=== PATIENT | female | born 1950 | race Caucasian/White ===

== ENCOUNTER 2017-01-19 06:42 | Inpatient (IN) ==
[2017-01-19] MEDS ORDERED: Vancomycin 1,250 MG in D5% in Water 250 ML IVPB ONE ×2 (07:08→19:00)
[2017-01-19] MEDS ORDERED: CeFAZolin Syr 2,000MG/20 ML 2,000 MG/20 ML SYRINGE IVPB ONE (07:08)
[2017-01-19] MEDS ORDERED: Ringers Solution, Lactated 1,000 ML IVC SCH (07:15)
[2017-01-19] MEDS ORDERED: Famotidine 20 MG/2 ML VIAL IVP ONE (07:32)
[2017-01-19] MEDS ORDERED: Acetaminophen IV 1,000 MG/100 ML INFUS..BTL IVPB ONE (07:33)
--- NOTE | 2017-01-19 07:36 | Anesthesia Evaluation PreOp ---
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 Other Medical History: GERD, Other (Obese) Anesthesia History: No Prior Anesthetic Complications : No Alcohol Use: none Drug use: none Medications and Allergies Aspirin 81 mg PO DAILY #90 tab.chew 12/28/15 [Rx] Rivaroxaban [Xarelto] 20 mg PO DAILY #30 tablet 02/10/16 [Rx] Cholecalciferol (D-3) [Vitamin D] 5,000 unit PO DAILY 10/26/16 [History] Multivitamin [One Daily Essential] 1 tab PO DAILY 10/26/16 [History] 3 Allergy/AdvReac Type Severity Reaction Status Date / Time codeine Allergy See Verified 01/19/17 07:02 Comments promethazine [From Phenergan] Allergy See Verified 01/19/17 07:02 Comments - Meds/Allergy Pre-op Review Medications Reviewed: Yes Allergies Reviewed: Yes Anesthesia Results - Labs Laboratory Tests 01/16/17 01/16/17 16:33 16:33 Hgb 12.6 Hct 39.7 Plt Count 297 Sodium 141 Potassium 4.0 BUN 11 Creatinine 0.64 - Imaging EKG: report reviewed (SR) Additional studies: ECHO LVEF 60% Anesthesia Exam O2 Sat Height 1.57 m Height 1.57 m Weight 91.626 kg Weight 91.626 kg O2 Sat by Pulse Oximetry 96 Vital Signs Temp Pulse Resp BP Pulse Ox 98.5 F 96 18 110/74 96 01/19/17 07:00 01/19/17 07:00 01/19/17 07:00 01/19/17 07:00 01/19/17 07:00 Height: 5'2 Weight: 202 lbs NPO (# of Hours): MN Pain Scale: 0 - HEENT Pupil (Motor): Pupils equal, EOMI Mallampati: III Teeth: Edentulous Denture Type: Upper: Complete Oral Opening: Less than or equal to 3 - OPERATOR AND TRUCK DRIVER LOC: Oriented OPERATOR AND TRUCK DRIVER Motor: Normal LUE, Normal RLE, Normal LLE, Normal Face, Deficit RUE ( weakness) OPERATOR AND TRUCK DRIVER Sensory: Normal: RUE, LUE, RLE, LLE, Face - Cardiac Rhythm: Regular Murmur: None JVD: No Carotid Bruit: No - Pulmonary Breath Sounds: bilateral Clear Respiratory Effort: Symmetrical Anesthesia Assess/Plan ASA Score: 3 (PVD Gerd) Modified Gorham Scale for Level of Consciousness: Cooperative, oriented, and tranquil Anesthetic Plan: General Monitoring Plan: Standard Monitors Recovery Plan: PACU (Discussed GA, agrees to proceed)
--- NOTE | 2017-01-19 07:37 | Anesthesia Evaluation PreOp ---
Date of Encounter: 01/19/17 Time of Encounter: 07:32 - Past History Planned Operation: Right brachial angioplasty, possible stent, Cardiac History: Other (PAD, right brachial artery stenosis,) Other Medical History: Bleeding (Lupus anticoagulant positive, chrnic anticoagulation,), GERD Alcohol Use: none Drug use: none Medications and Allergies Aspirin 81 mg PO DAILY #90 tab.chew 12/28/15 [Rx] Rivaroxaban [Xarelto] 20 mg PO DAILY #30 tablet 02/10/16 [Rx] Cholecalciferol (D-3) [Vitamin D] 5,000 unit PO DAILY 10/26/16 [History] Multivitamin [One Daily Essential] 1 tab PO DAILY 10/26/16 [History] 3 Allergy/AdvReac Type Severity Reaction Status Date / Time codeine Allergy See Verified 01/19/17 07:02 Comments promethazine [From Phenergan] Allergy See Verified 01/19/17 07:02 Comments Anesthesia Results - Imaging Additional studies: Angio 12/21/2016: Normal aortic arch and great vessels. 95% Right brachial artery irregular stenosis, possible chronic partial thrombosis. Echo 12/27/2015 LVEF 60-65%. Mild concentric left ventricular hypertrophy. No significant valvular dysfunction. No definite cardiac embolic source detected. Consider PENELOPE for more diagnostic sensitivity if clinically indicated or arrhythmia evaluation.
[2017-01-19] MEDS ORDERED: Heparin 1,000 UNITS/500 mL NS 500 ML ONE (07:52)
[2017-01-19] MEDS ORDERED: Vancomycin 1,000 MG VIAL ONE (07:52)
[2017-01-19] MEDS ORDERED: *HR* Propofol 200 MG/20 ML VIAL IVP ONE (07:56)
[2017-01-19] MEDS ORDERED: *HR* FentaNYL (PF) 100 MCG/2 ML VIAL ONE (07:56)
[2017-01-19] MEDS ORDERED: *HR* Midazolam HCl 2 MG/2 ML VIAL ONE (07:56)
[2017-01-19] MEDS ORDERED: Ondansetron 4 MG/2 ML VIAL ONE (07:57)
[2017-01-19] MEDS ORDERED: *HR* Succinylcholine 200 MG/10 ML VIAL IVP ONE (07:57)
[2017-01-19] MEDS ORDERED: Lidocaine -MPF 2% 2 ML VIAL ONE ×2 (07:57→08:24)
[2017-01-19] MEDS ORDERED: Lidocaine -MPF 4% 5 ML AMPUL ONE (07:57)
[2017-01-19] MEDS ORDERED: Bupivacaine-MPF 0.25% 10 ML VIAL ONE (08:01)
--- NOTE | 2017-01-19 08:11 | History & Physical Report ---
Date of Encounter: 01/19/17 Time of Encounter: 07:55 24 Hour HP Update - Instructions Instructions: If the History and Physical is less than 30 days old and was completed prior to A.M. admission and or procedure and has NOT been updated on calendar day of procedure please complete this update prior to performing procedure. - Update Patient reports changes in Medical Condition: No Changes in examination, assessment, or condition: No Changes in Medication: No Preop tests/diagnostics Reviewed: Yes Surgery Remains Indicated: Yes Consent for Planned Operative Procedure(s) Verified: Yes - Pre-Operative Checklist Preoperative Checklist Indicated: Yes Prophylactic Antibiotic Ordered: Yes (vancomycin due to mrsa risk) Home Medications Include Beta Danuta: No Beta Danuta Taken Today (Day of Surgery): No Beta Danuta Taken Yesterday (Day Prior to Surgery): No
[2017-01-19] MEDS ORDERED: Dexamethasone 4 MG/ML VIAL ONE (08:38)
[2017-01-19] MEDS ORDERED: *HR* Phenylephrine 10 MG/ML VIAL ONE (08:47)
[2017-01-19] MEDS ORDERED: *HR* HYDROmorphone (PF) 1 MG/ML SYRINGE IVP PRN (08:54)
[2017-01-19] MEDS ORDERED: Ondansetron 4 MG/2 ML VIAL IVP PRN ×2 (08:54→12:54)
[2017-01-19] MEDS ORDERED: *HR* Labetalol 20 MG/4 ML SYRINGE IVP PRN ×2 (08:54→12:54)
[2017-01-19] MEDS ORDERED: *HR* Rocuronium Bromide 50 MG/5 ML VIAL ONE (09:00)
[2017-01-19] MEDS ORDERED: *HR* Heparin 5,000 UNIT/ML VIAL ONE ×2 (09:51→10:42)
[2017-01-19] MEDS ORDERED: Neostigmine Methylsulfate 3 MG/3 ML SYRINGE ONE (11:09)
[2017-01-19] MEDS ORDERED: Ketorolac 30 MG/ML VIAL ONE (11:14)
--- NOTE | 2017-01-19 11:46 | Operative Note ---
Date of procedure: 01/19/17 Pre-op diagnosis: Peripheral vascular disease with acute on chronic limb ischemia Post-op diagnosis: same Procedure: Right upper extremity thrombectomy with 4 setswana charo catheter via right brachial artery approach. Right brachial artery endarterectomy with bovine pericardial patch angioplasty. Complications: None Anesthesia: NILAMA Surgeon: John Galvan Estimated blood loss (cc): 50 Specimen: Right upper extremity thrombus Condition: stable Disposition: PACU Procedure in Detail: Indications: The patient is a 66 year old female with a history of acute right upper extremity ischemia with delayed presentation. The patient previously underwent a right upper extremity thrombectomy and her symptoms resolved. The patient recently stopped her anticoagulation for procedures and then developed recurrent right upper extremity symptoms. She was found on angiography to have severe irregular stenoses in the right brachial artery. Revascularization chase s been recommended to alleviate her symptoms and reduce her risk of limb loss. Procedure: The patient was identified in the preoperative area. The risks, benefits and alternatives of the procedure were discussed and all questions were answered. The correct extremity was identified and marked and a barrier was placed on the opposite extremity. The patient was then taken to the operating room. She was placed in the supine position on the operating table. After the induction of general endotracheal anesthesia, she was prepped and draped in the normal sterile fashion. Her transverse scar in the antecubital fossa was opened sharply. Hemostasis was obtinaed with electrocautery. Through a process of blunt, sharp and electocautery dissection, the left bachial, radial and ulnar arteries were dissected circumferentially and surrounded with vessel loops. The patient then received intravenous heparin. After waiting for the heparin to circulate, a longitudinal incision was then made in the right brachial artery. A 4 setswana charo embolectomy catheter was then advanced into the brachial artery. An thrombectomy was then performed. Firm fragmetns of thrombus were retrieved on multiple passes. After several negative passes, the artery was noted to have strong, pulsatile flow. the vessel was flushed with heparinized saline and occluded. The patient was noted to have intimal hyperplasia resulting in significant stenosis along the distal brachial artery in the region of her prior arteriotomy sites. The longitudinal arteriotomy was then extended through the prior transverse arteriotomy sites. An endarterectomy was then performed on the brachial artery. Proximal and distal endpoints were inspected and no elevated flaps were noted. A bovine pericardial patch was cut to fit the arterial defect and sutured in place with running 6-0 Prolene. Prior to completing the patch anastomosis, each vessel was flushed individually, then reoccluded. Heparinized saline was infused into the lumen. The patch was completed and flow was restored. Thrombin and Gelfoam were used to aid in hemostasis. Polyphasic signal was noted distal to the distal end of the patch as well as at the radial and ulnar arteries. A polyphasic signal was also identified in the palmar arch. The wound was irrigated with antibiotic-containing saline. Platelet-rich and platelet-poor plasma were infused into the wound. The wounds were reapproximated with layer of 2-0 Vicryl followed by two layers of 3-0 and Vicryl 3-0 Monocryl in the subcuticular layer. Sterile dressings were applied. The patient was extubated, taken to recovery room in stable condition
--- NOTE | 2017-01-19 12:28 | Anesthesia Evaluation Post Op ---
Date of Encounter: 01/19/17 Time of Encounter: 12:27 - Vital Signs Vital Signs: Selected Entries 01/19/17 12:12 Temperature 97.2 F L Pulse Rate 64 Respiratory Rate 12 Blood Pressure 110/69 O2 Sat by Pulse Oximetry 98 Oxygen Flow Rate (LPM) 2 - Lungs Lungs: Clear Ascult./Percussion - Airway Airway: Non-obstructed - Cardiovascular Regular Rate - Mental Status Mental Status: Alert & Oriented, Answers Appropriately - Pain Pain Scale: 0 Pain Scale used: Numeric (1 - 10) - Nausea Vomiting Nausea Vomiting: Not Present - Hydration Hydration: Ice chips, Samaniego catheter - Discharge PostOp Status: Transfer Patient to floor
[2017-01-19] MEDS ORDERED: Naloxone 0.4 MG/ML INJ IVP PRN (12:54)
[2017-01-19] MEDS ORDERED: Acetaminophen 325 MG TABLET PO PRN (12:54)
[2017-01-19] MEDS ORDERED: *HR* OxyCODONE Immed Rel 5 MG TABLET PO PRN (12:54)
[2017-01-19] MEDS: *HR* Morphine 2 MG/ML SYRINGE IVP PRN ×2 (13:37→23:16)
[2017-01-19] MEDS: *HR* Metoprolol 5 MG/5 ML VIAL IVP SCH ×2 (13:40→17:59)
[2017-01-19] MEDS ORDERED: Aspirin 81 MG TAB.CHEW ONE (15:00)
[2017-01-19] MEDS: Aspirin 81 MG TAB.CHEW PO SCH (15:03)
--- NOTE | 2017-01-19 15:46 | Oncology Inp Consult Note ---
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 - UE arteral physiologic study on Apr 14, 2016 showed that the bilateral upper extremity arterial systems were hemodynamically well maintaned, but repeated study on November 2016 revealed that the right upper extremity was moderate to severely abnormal. She underwent EGD/Colonoscopy and Hernia repair - Xarelto was held due to EGD/Colonoscopy performed due to GI complaints, and then again due to hernia repair surgery on October, what required to hold xarelto for a few days. I explained to Ms. Fine that her recurrent right upper extremity arterial thrombosis could have occurred during the time that anticoagulation was held. -We discussed the options of resuming anticoagulation with xarelto 20 mg daily and asa 81 mg daily ( assuming that her recurrent episode occurred while anticoagulation was being held for procedures/surgery), versus the option of dual anti platelet therapy with asa 81 mg daily and plavix 75 mg daily ( without xarelto). After discussion with the patient and vascular team, it was decided to resume xarelto and asa at the same dose. She will receive the first dose today. She is doing well post op, and will be observed overnight, and possible discharge tomorrow if there are not complications. - Prior work up in 2015 including an extensive hypercoagulable work up that revealed not evidence of an underlying hypercoagulable disorder. Her record has a mention of positive lupus anticoagulant, but she denies any history of APS, stroke, MT ,or other thrombotic episodes. Her prior work up has been negative for APS, these include normal lupus anticoagulant testing, negative values of anti cardiolipin antibodies IgG, IgM, B2 glycoprotein. 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 In view of this, I will repeat anti cardiolipin antibodies, as well as B2 glycoprotein antibodies to rule out APS. - She reports being scheduled to see her cigarette inspector Dr. Ag next week. She was instructed to keep that appointment. Plan: - Resume xarelto 20 mg daily - Resume asa 81 mg daily - For future procedures/surgeries, I'd recommend to bridge with heparin drip in view of the high risk of re thrombosis. - Check Anti cardiolipin antibodies IgG, IgM - Check B2 glycoprotein antibodies IgA, IgG, IgM - Follow up with hematology at the office as scheduled. - Data of Consult Requesting Physician: John Galvan MD Primary Care Provider: Yaa Pantoja CNP - Consult Narrative Reason for consult: Recurrent right uppper extremity arterial thrombosis. History of present illness: Ms. Fine is a 66 year old female with history of right upper extremity thrombosis in December 2015. She was admitted due to recurrent right upper extremity thrombosis while on Xarelto and asa 81 mg daily. Ms. Fine reports that prior to Dec 2015 she had not suffered any thrombotic episode, these include no history of MT, CVA, or VTE. She reports not family history of thrombotic events. In Dec 2015 she underwent thrombectomy, subsequently she was anticoagulated with xarelto and asa 81 mg daily. She had a extensive, but negative hypercoagulable work up; these included normal normal values of lupus anticoagulant, anti cardiolipin ab IgG, IgM, beta 2 glycoprotein IgG, IgM, normal values of protein C, S, ASH, FVL, and negative prothrombin gene mutation. She has been seen regularly by hematology and vascular as outpatient. Vascular physiologic studies in Apr 2016 revealed patent, stable circulation, however repeated studies in November 2016 revealed decrease perfusion in the right upper extremity. She reports being complaint with both xarelto and asa that she has been taking daily, except when stopped during the time of her hernia repair and EGD/Colonscopy. She reports pain in her right upper extremity for several weeks, today she underwent surgical intervention/thrombectomy. In the post op, she reports feeling well, denies pain. Past Med Surg Social Fam HX - Past Medical History Medical history: DVT, other Psychiatric history: no psych history - Past Surgical History Surgical History: hysterectomy, other - Social History Smoking Status: Never smoker Smokeless Tobacco Status: No Alcohol use: none Drug use: none - Family History Mother Hx Family Cardiac Disorders: No Father Hx Family Cardiac Disorders: No Medications and Allergies Aspirin 81 mg PO DAILY #90 tab.chew 12/28/15 [Rx] Rivaroxaban [Xarelto] 20 mg PO DAILY #30 tablet 02/10/16 [Rx] Cholecalciferol (D-3) [Vitamin D] 5,000 unit PO DAILY 10/26/16 [History] Multivitamin [One Daily Essential] 1 tab PO DAILY 10/26/16 [History] 3 Allergy/AdvReac Type Severity Reaction Status Date / Time codeine Allergy See Verified 01/19/17 07:02 Comments promethazine [From Phenergan] Allergy See Verified 01/19/17 07:02 Comments Constitutional: Absent: anorexia, chills Cardiovascular: Absent: chest pain, dyspnea on exertion Gastrointestinal: Absent: abdominal pain, bloating Musculoskeletal: Absent: arthralgias, joint swelling Neurological: Absent: abnormal hearing, behavioral changes, headache(s) Psychiatric: Absent: confusion, memory loss Hematologic/Lymphatic: Present: as per HPI. Absent: easy bleeding Oncology - Exam - Constitutional Vitals: Temp Pulse Resp BP Pulse Ox 98.1 F 91 16 107/97 100 01/19/17 12:29 01/19/17 15:00 01/19/17 12:29 01/19/17 15:00 01/19/17 12:29 - Head Head exam: Present: normal inspection, normocephalic - Eye Eye exam: Present: EOMI, normal appearance - Neck Neck exam: Absent: meningismus, tenderness - Respiratory Respiratory exam: Present: CTAB. Absent: prolonged expiratory phase - Cardiovascular Cardiovascular exam: Present: RRR, +S1 - GI/Abdominal GI/Abdominal exam: Present: normal bowel sounds. Absent: organomegaly - Extremities Exam Extremities exam: Present: normal capillary refill (normal capillary refill in both upper extremities. surgical incision. ), normal inspection. Absent: tenderness - Back Exam Back exam: Present: normal inspection. Absent: CVA tenderness (L) - Neurological Exam Neurological exam: Present: alert, oriented X3 Consult Discharge Plan - Plan Referrals: Yaa Pantoja CNP [Primary Care Provider] - 01/25/17 11:00 am John Galvan MD [Partnered Physician] - 02/14/17 2:30 pm
[2017-01-19] MEDS: CeFAZolin Premix DUPLEX 2,000 MG/50 ML BAG IVPB SCH ×2 (16:06→23:15)
[2017-01-19] MEDS ORDERED: *HR* Rivaroxaban 10 MG TABLET PO SCH (17:00)
[2017-01-19] MEDS ORDERED: *HR* Heparin 5,000 UNIT/ML VIAL SQ SCH (18:00)
[2017-01-19] MEDS: *HR* HYDROcodone/Acet 5/325 mg TABLET PO PRN (20:36)
[2017-01-20] MEDS: *HR* HYDROcodone/Acet 5/325 mg TABLET PO PRN (04:05)
[2017-01-20] MEDS: *HR* Metoprolol 5 MG/5 ML VIAL IVP SCH ×2 (05:14)
[2017-01-20 05:26] LABS: Basophils % 0.1 %; Hematocrit 34.6 % (35.3-44.9); Hemoglobin 11.1 g/dL (11.5-15.4); Immature Granulocytes % 0.5 % (0-4); Lymphocytes # 1.7 K/mcL (0.6-4.6); Lymphocytes % 9.9 %; Mean Corpuscular HGB Conc 32.1 g/dL (31.6-35.5); Mean Corpuscular Hemoglobin 27.8 pg (28.0-33.3); Mean Corpuscular Volume 86.7 fL (83.0-100.0); Mean Platelet Volume 9.5 fL (9.4-12.4); Monocytes # 1.2 K/mcL (0.0-1.3); Monocytes % 7.1 %; Neutrophils # 13.9 K/mcL (1.6-8.9); Platelet Count 288 K/mcL (140-400); Red Blood Count 3.99 M/mcL (3.82-4.97); Red Cell Distribution Width 12.6 % (11.5-14.5); Segmented Neutrophils % 82.4 %
[2017-01-20 05:51] LABS: BUN/Creatinine Ratio 16 (6-26); Blood Urea Nitrogen 10 mg/dL (7-20); Calcium 8.4 mg/dL (8.6-10.8); Carbon Dioxide 22 mEq/L (19-29); Chloride 102 mEq/L (98-109); Glucose 104 mg/dL (70-99); Osmolality,Calculated 275 (280-300); Potassium 4.1 mEq/L (3.5-4.5); Sodium 133 mEq/L (136-145); eGFR For African Americans > 60 (> 60); eGFR For Non-African Americans > 60 (> 60)
--- NOTE | 2017-01-20 06:29 | Discharge Summary ---
Date of Encounter: 01/20/17 Time of Encounter: 07:50 - Discharge Diagnosis (1) Brachial artery occlusion, right Priority: Primary Status: Acute Comments: The patient is postoperative day one after a right upper extremity thrombectomy with brachial artery endarterectomy. (2) Hypercoagulable state Status: Chronic (3) Acute blood loss anemia Priority: Secondary Status: Acute Comments: The patient has acute expected postoperative blood loss anemia. She is hemodynamically stable without evidence of ongoing blood loss. - Discharge Medications Prescriptions: OxyCODONE/APAP 5/325 [Percocet 5/325 MG] 1 each PO Q6HR PRN #25 tablet PRN Reason: postoperative pain Home Medications: Aspirin 81 mg PO DAILY #90 tab.chew 12/28/15 [Rx] Rivaroxaban [Xarelto] 20 mg PO DAILY #30 tablet 02/10/16 [Rx] Cholecalciferol (D-3) [Vitamin D] 5,000 unit PO DAILY 10/26/16 [History] Multivitamin [One Daily Essential] 1 tab PO DAILY 10/26/16 [History] OxyCODONE/APAP 5/325 [Percocet 5/325 MG] 1 each PO Q6HR PRN #25 tablet 01/20/17 [Rx] Allergies/Adverse Reactions: 3 Allergy/AdvReac Type Severity Reaction Status Date / Time codeine Allergy See Verified 01/19/17 07:02 Comments promethazine [From Phenergan] Allergy See Verified 01/19/17 07:02 Comments Date of admission: 01/19/17 12:19 Primary care physician: Yaa Pantoja CNP Procedure(s) Performed: Right upper extremity thrombectomy and right brachial artery endarterectomy. Discharging clinician: John Galvan Anticipated date of discharge: 01/20/17 - Patient Status Disposition: Home, Self-Care Condition: Good Functional capacity at discharge: independent ambulation Overall status at discharge: patient is back to baseline - Discharge Instructions Follow Up With: Yaa Pantoja CNP [Primary Care Provider] - 01/25/17 11:00 am John Galvan MD [Partnered Physician] - 02/14/17 2:30 pm Additional Instructions: May remove bandage and shower 01/21/17. Wash wound gently and pat to dry. Apply dry gauze to wounds daily as needed. No tub baths or swimming until 02/11/17. Call Dr. Galvan at [phone] with questions or concerns. - Diet and Activity Activity: increase activity as tolerated - Hospital Course Hospital course: Ms. Fine is a 66 year old female - Time Spent with Patient Total time spent providing and/or coordinating discharge services: Exam Vital Signs, Last 4 Hours Temp Pulse Resp BP Pulse Ox 01/20/17 05:14 97/54 01/20/17 04:52 98.2 F 78 18 102/57 95 01/20/17 04:05 65 18 95 General: Present: Conversant, No Apparent Distress HEENT: Present: Pupils equal Cardiac: Present: Reg Rate and Rhythm Lungs: Present: Normal Breath Sounds Neuro: Present: Alert and responsive, No focal deficits noted, Motor nerves grossly intact, Sensory nerves grossly intact Vascular: Present: Normal capillary refill, Pulse, normal (right radial and ulnar signals polyphasic), Surgical incisions (hematoma). Absent: Cyanosis, Edema - VTE Documentation of Mechanical Device: Intermittent pneumatic compression device
[2017-01-20 07:16] VITALS: BP 96/58
[2017-01-20] MEDS: Aspirin 81 MG TAB.CHEW PO SCH (07:58)
[2017-01-20] MEDS ORDERED: Cholecalciferol (D-3) 1,000 UNIT TABLET PO SCH (09:00)
[2017-01-20] MEDS ORDERED: Multivit/Ca/Min/Fe/FA 1 TAB TABLET PO SCH (09:00)
== END 2017-01-20 09:56 | disposition home or self-care (01) | DRG 253 ==
LOC: SAMDAY 06:42 → 2NNU 12:19
PROVIDERS: ADMIT Surgery; ATTEND Surgery

== ENCOUNTER 2018-02-20 03:00 | Inpatient (IN) ==
[2018-02-20] MEDS ORDERED: 0.9 % Sodium Chloride 500 ML IVC ONE (03:32)
[2018-02-20] MEDS ORDERED: Ondansetron 4 MG/2 ML VIAL IVP ONE (03:32)
[2018-02-20] MEDS ORDERED: *HR* Morphine 2 MG/ML SYRINGE IVP ONE ×2 (03:32→05:07)
[2018-02-20] MEDS ORDERED: Isovue-370 500 ML INFUS..BTL IV ONE (03:32)
--- NOTE | 2018-02-20 03:52 | Emergency Department Note ---
Disposition Clinical Impression: Left arm pain, C. difficile diarrhea Disposition: Still a Patient Condition: Fair Referrals: Yaa Pantoja, DIRECTOR MEDIA [Primary Care Provider] - General Adult HPI - General Stated complaint: Pain on left side Time Seen by Provider: 02/20/18 03:17 - Related Data Home Medications Medication Instructions Recorded Confirmed Cholecalciferol (D-3) [Vitamin D] 5,000 unit PO DAILY 10/26/16 02/15/18 Multivitamin [One Daily Essential] 1 tab PO DAILY 10/26/16 02/15/18 Acetaminophen [Tylenol Arthritis] 2 tab PO BID PRN 02/24/17 02/15/18 Atorvastatin [Lipitor] 40 mg PO HS 05/05/17 02/15/18 Cyclobenzaprine [Flexeril] 5 mg PO BID PRN 05/05/17 02/15/18 Warfarin [Coumadin] 2 mg PO AD 05/05/17 02/15/18 Previous Rx's Medication Instructions Recorded Aspirin 81 mg PO DAILY #90 tab.chew 12/28/15 Ciprofloxacin HCl [Cipro] 1 tab PO BID #10 tablet 02/15/18 Lactobacillus Acidophilus 1 tab PO BID #60 tablet 02/15/18 [Acidophilus Probiotic] metroNIDAZOLE [Flagyl] 1 tab PO TID #15 tablet 02/15/18 Allergies Allergy/AdvReac Type Severity Reaction Status Date / Time codeine Allergy See Verified 02/15/18 11:32 Comments promethazine [From Phenergan] Allergy See Verified 02/15/18 11:32 Comments Past Medical History - Past Medical History Medical history: Reports: DVT, other Surgical history: Reports: hysterectomy, other Psychiatric history: Reports: no psych history - Social History Smoking Status: Never smoker Smokeless Tobacco Status: No Alcohol use: Reports: none Drug use: Reports: none Course Vital Signs Temperature 98.1 F 02/20/18 04:16 Pulse Rate 90 02/20/18 04:16 Respiratory Rate 18 02/20/18 04:16 Blood Pressure 112/75 02/20/18 04:16 O2 Sat by Pulse Oximetry 98 02/20/18 04:16 Temperature 98.1 F 02/20/18 04:16 Pulse Rate 89 02/20/18 06:25 Respiratory Rate 18 02/20/18 06:25 Blood Pressure 119/59 02/20/18 06:25 O2 Sat by Pulse Oximetry 98 02/20/18 06:25 Oxygen Delivery Oxygen Delivery Room Air Medical Decision Making - Lab Data Result diagrams: 02/20/18 04:25 02/20/18 04:25 Lab Results 02/20/18 02/20/18 02/20/18 Range/Units 04:25 04:25 04:25 WBC 15.4 H (4.3-11.1) K/mcL RBC 3.95 (3.82-4.97) M/mcL Hgb 10.9 L D (11.5-15.4) g/dL Hct 34.2 L (35.3-44.9) % MCV 86.6 (83.0-100.0) fL MCH 27.6 L (28.0-33.3) pg MCHC 31.9 (31.6-35.5) g/dL RDW 13.2 (11.5-14.5) % Plt Count 263 (140-400) K/mcL MPV 8.9 L (9.4-12.4) fL Immature Gran % 0.4 (0-4) % Seg Neutrophils % 73.7 % Lymphocytes % 12.5 % Monocytes % 11.1 % Eosinophils % 1.9 % Basophils % 0.4 % Neutrophils # 11.3 H (1.6-8.9) K/mcL Lymphocytes # 1.9 (0.6-4.6) K/mcL Monocytes # 1.7 H (0.0-1.3) K/mcL Eosinophils # 0.3 (0.0-0.6) K/mcL Basophils # 0.1 (0.0-0.2) K/mcL PT 63.4 H* (9.4-12.1) Seconds INR 5.6 H* APTT 45.0 H (26.0-36.0) Seconds Sodium 137 (136-145) mEq/L Potassium 3.7 (3.5-5.1) mEq/L Chloride 104 (98-107) mEq/L Carbon Dioxide 25 (23-29) mEq/L BUN 11 (8-23) mg/dL Creatinine 0.60 (0.60-1.20) mg/dL Est GFR ( Amer) > 60 (> 60) Est GFR (Non-Af Amer) > 60 (> 60) BUN/Creatinine Ratio 18 (6-26) Glucose 109 H (70-105) mg/dL Calculated Osmolality 284 (280-300) Calcium 8.3 L (8.6-10.3) mg/dL Troponin I < 0.03 (< 0.04) ng/mL Attestation Statement - Attestation Attestation: Resident Attestation: I examined this patient and my medical decision making was reviewed with the Resident Physician. I agree with the documented findings, disposition and treatment plan as described except to the extent set forth below. We independently had [id number] contact with the patient. Seen alongside resident physician Jose Villa. Please see his note for further details and disposition. 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 Patient was reaching in her pocket when pain became severe in onset. Patient has had pain with palpation to both the anterior chest as well as the shoulder the trapezius as well as the deltoid biceps and triceps. Replication of pain with movement at the elbow as well as at the shoulder. Radial pulses are +2 and symmetric. The patient is requesting narcotic medications upon entering the room. She states that she did not make the appointments the [facility] to have her left side evaluated for thoracic outlet as she was supposed to. Patient does take Coumadin secondary to the DVT in the right. Is seen by our hematology team and no specific etiology for the blood clot was found. At this time the patient will undergo further evaluation for blood vessel abnormality within the subclavian as well as possible thoracic outlet syndrome with CTA of the chest. Pain medication has been ordered. Blood work and INR has also been ordered. Patient will require reevaluation. On reevaluation the patient does have a significantly elevated INR which on talking to her is likely from antibiotic solution was recently started on. She was recently diagnosed with C[facility] difficile [facility]. She had had watery diarrhea. Patient continues to have episodes of diarrhea despite Cipro and Flagyl. Watery diarrhea has become less in nature. Patient does not have significant abdominal pain. No significant tenderness. Given her negative workup at this time including CTA of the chest as well as neck we will perform a DVT study as she states that this is the same symptoms that she was having with her previous DVT. She states that initially things were not found until she went to [facility]. At this time she has received 12 mg of morphine and continues to ask for more pain medication. There is no other evidence of infection on her blood work. Due to her history of the C. difficile and the likely need for admission secondary to pain control she will receive CT abdomen and pelvis to further evaluate her C. difficile colitis. Patient signed out to the [facility] day physician.
--- NOTE | 2018-02-20 04:08 | Emergency Department Note ---
Disposition Clinical Impression: Left arm pain, C. difficile diarrhea Disposition: Still a Patient Condition: Fair Referrals: Yaa Pantoja, [employer] [Primary Care Provider] - General Adult HPI - General Stated complaint: Pain on left side Time Seen by Provider: 02/20/18 03:17 Source: patient Mode of arrival: ambulatory Limitations: no limitations Nursing Notes Reviewed: Yes Vital Signs Reviewed: Yes - History of Present Illness HPI Narrative: Patient presents to the ED with the chief complaint of left-sided arm pain. 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 She is on Coumadin for this. She states that it was due to a cervical rib, which she did have removed at the [facility] several years ago. They report that she is supposed to have it done on the left, but she has not followed up with him. She reports that she was out with some friends tonight and they were going into and all he can eat, but failed and she reached into her back pocket to get her phone and then had the acute onset of left-sided subclavian deltoid and shoulder pain that radiated down into her hand. She reports the pain is continued to get worse. It is worse with movement. Does not seem to get worse with deep breath. There is no headache or neck pain. No changes in vision. No associated chest discomfort. No shortness of breath. No abdominal pain. Some nausea but no vomiting. She does complain of diarrhea, but states that she was recently diagnosed with C. difficile. No rashes. She does state this feels like the last time with the issue on the opposite side, but it is not as bad. - Related Data Home Medications Medication Instructions Recorded Confirmed Cholecalciferol (D-3) [Vitamin D] 5,000 unit PO DAILY 10/26/16 02/15/18 Multivitamin [One Daily Essential] 1 tab PO DAILY 10/26/16 02/15/18 Acetaminophen [Tylenol Arthritis] 2 tab PO BID PRN 02/24/17 02/15/18 Atorvastatin [Lipitor] 40 mg PO HS 05/05/17 02/15/18 Cyclobenzaprine [Flexeril] 5 mg PO BID PRN 05/05/17 02/15/18 Warfarin [Coumadin] 2 mg PO AD 05/05/17 02/15/18 Previous Rx's Medication Instructions Recorded Aspirin 81 mg PO DAILY #90 tab.chew 10/17/16 Ciprofloxacin HCl [Cipro] 1 tab PO BID #10 tablet 02/15/18 Lactobacillus Acidophilus 1 tab PO BID #60 tablet 02/15/18 [Acidophilus Probiotic] metroNIDAZOLE [Flagyl] 1 tab PO TID #15 tablet 02/15/18 Allergies Allergy/AdvReac Type Severity Reaction Status Date / Time codeine Allergy See Verified 02/15/18 11:32 Comments promethazine [From Phenergan] Allergy See Verified 02/15/18 11:32 Comments Review of Systems: As reviewed in the HPI. All other systems reviewed are negative or normal. Past Medical History - Past Medical History Attestation: Yes The following information was validated with the patient. Source: patient Medical history: Reports: DVT, other Surgical history: Reports: hysterectomy, other Psychiatric history: Reports: no psych history - Social History Smoking Status: Never smoker Smokeless Tobacco Status: No Alcohol use: Reports: none Drug use: Reports: none Physical Exam CONSTITUTIONAL: [well appearing, alert and in no acute distress] EYES: [EOMI, clear conjunctiva, PERRLA] HENT: [Normocephalic, atraumatic, moist mucus membranes, normal oropharynx] NECK: [normal inspection, full ROM, trachea midline, no obvious swelling] PULMONARY: [normal lung sounds bilaterally, normal chest rise and fall, no respiratory distress or stridor, no wheezes, no rales, no rhonchi CARDIOVASCULAR: [regular rate, regular rhythm, normal heart sounds, no murmurs, distal extremities are warm and well perfused] GASTROINSTESTINAL: [soft, non-tender, non-rigid, non-distended, no guarding, no rebound, normal bowel sounds] GENITOURINARY/RECTAL: [deferred] NEUROLOGIC: [Alert, oriented x3, normal speech, moves all extremities , but does complain of significant pain when moving the left upper extremity] EXTREMITIES: [Normal inspection, full ROM but is painful, + tenderness to the L subclavian area in the left deltoid, which does reproduce her pain, no pedal edema, normal capillary refill] MUSCULOSKELETAL: [no gross deformities, atraumatic] SKIN: [No cyanosis, no diaphoresis, normal color, warm, no rash] PSYCHIATRIC: [anxious] Course Course Narrative: patient signed out to Dr. Mayo pending CT and US for final dispo. Vital Signs Temperature 98.1 F 02/20/18 04:16 Pulse Rate 90 02/20/18 04:16 Respiratory Rate 18 02/20/18 04:16 Blood Pressure 112/75 02/20/18 04:16 O2 Sat by Pulse Oximetry 98 02/20/18 04:16 Temperature 98.1 F 02/20/18 04:16 Pulse Rate 89 02/20/18 06:25 Respiratory Rate 18 02/20/18 06:25 Blood Pressure 119/59 02/20/18 06:25 O2 Sat by Pulse Oximetry 98 02/20/18 06:25 Oxygen Delivery Oxygen Delivery Room Air Medical Decision Making - Medical Records Medical records reviewed: Yes I reviewed the patient's medical records. - Lab Data Lab results reviewed: Yes I reviewed the patient's lab results. Result diagrams: 02/20/18 04:25 02/20/18 04:25 Lab Results 02/20/18 02/20/18 02/20/18 Range/Units 04:25 04:25 04:25 WBC 15.4 H (4.3-11.1) K/mcL RBC 3.95 (3.82-4.97) M/mcL Hgb 10.9 L D (11.5-15.4) g/dL Hct 34.2 L (35.3-44.9) % MCV 86.6 (83.0-100.0) fL MCH 27.6 L (28.0-33.3) pg MCHC 31.9 (31.6-35.5) g/dL RDW 13.2 (11.5-14.5) % Plt Count 263 (140-400) K/mcL MPV 8.9 L (9.4-12.4) fL Immature Gran % 0.4 (0-4) % Seg Neutrophils % 73.7 % Lymphocytes % 12.5 % Monocytes % 11.1 % Eosinophils % 1.9 % Basophils % 0.4 % Neutrophils # 11.3 H (1.6-8.9) K/mcL Lymphocytes # 1.9 (0.6-4.6) K/mcL Monocytes # 1.7 H (0.0-1.3) K/mcL Eosinophils # 0.3 (0.0-0.6) K/mcL Basophils # 0.1 (0.0-0.2) K/mcL PT 63.4 H* (9.4-12.1) Seconds INR 5.6 H* APTT 45.0 H (26.0-36.0) Seconds Sodium 137 (136-145) mEq/L Potassium 3.7 (3.5-5.1) mEq/L Chloride 104 (98-107) mEq/L Carbon Dioxide 25 (23-29) mEq/L BUN 11 (8-23) mg/dL Creatinine 0.60 (0.60-1.20) mg/dL Est GFR ( Amer) > 60 (> 60) Est GFR (Non-Af Amer) > 60 (> 60) BUN/Creatinine Ratio 18 (6-26) Glucose 109 H (70-105) mg/dL Calculated Osmolality 284 (280-300) Calcium 8.3 L (8.6-10.3) mg/dL Troponin I < 0.03 (< 0.04) ng/mL - Radiology Data Radiology results reviewed: Yes I reviewed the patient's radiology results. - EKG Data EKG #1 EKG attestation: Yes I reviewed and interpreted this EKG. EKG results narrative: Sinus rhythm, rate 94, normal axis, no acute ischemic changes
[2018-02-20 04:56] LABS: Basophils # 0.1 K/mcL (0.0-0.2); Basophils % 0.4 %; Eosinophils # 0.3 K/mcL (0.0-0.6); Eosinophils % 1.9 %; Hematocrit 34.2 % (35.3-44.9); Hemoglobin 10.9 g/dL (11.5-15.4); Immature Granulocytes % 0.4 % (0-4); Lymphocytes # 1.9 K/mcL (0.6-4.6); Lymphocytes % 12.5 %; Mean Corpuscular HGB Conc 31.9 g/dL (31.6-35.5); Mean Corpuscular Hemoglobin 27.6 pg (28.0-33.3); Mean Corpuscular Volume 86.6 fL (83.0-100.0); Mean Platelet Volume 8.9 fL (9.4-12.4); Monocytes # 1.7 K/mcL (0.0-1.3); Monocytes % 11.1 %; Neutrophils # 11.3 K/mcL (1.6-8.9); Platelet Count 263 K/mcL (140-400); Red Blood Count 3.95 M/mcL (3.82-4.97); Red Cell Distribution Width 13.2 % (11.5-14.5); Segmented Neutrophils % 73.7 %
[2018-02-20 05:09] LABS: INR 5.6; Prothrombin Time 63.4 Seconds (9.4-12.1)
[2018-02-20 05:12] LABS: BUN/Creatinine Ratio 18 (6-26); Blood Urea Nitrogen 11 mg/dL (8-23); Calcium 8.3 mg/dL (8.6-10.3); Carbon Dioxide 25 mEq/L (23-29); Chloride 104 mEq/L (98-107); Glucose 109 mg/dL (70-105); Osmolality,Calculated 284 (280-300); Potassium 3.7 mEq/L (3.5-5.1); Sodium 137 mEq/L (136-145); eGFR For Non-African Americans > 60 (> 60)
[2018-02-20 05:13] LABS: Troponin I < 0.03 ng/mL (< 0.04)
[2018-02-20] MEDS ORDERED: *HR* HYDROmorphone (PF) 1 MG/ML SYRINGE IVP ONE (06:33)
--- NOTE | 2018-02-20 07:27 | Emergency Department Note ---
Disposition Clinical Impression: Left arm pain, C. difficile diarrhea, Supratherapeutic INR Disposition: Admitted As Inpatient Condition: Good Referrals: Yaa Pantoja, [employer] [Primary Care Provider] - Time of Disposition: 09:39 General Adult HPI - General Chief complaint: ED Extremity Injury, Upper Stated complaint: Pain on left side Time Seen by Provider: 02/20/18 03:17 Source: patient Mode of arrival: ambulatory Limitations: no limitations - History of Present Illness Pain Scale: 9 - Related Data Home Medications Medication Instructions Recorded Confirmed Cholecalciferol (D-3) [Vitamin D] 5,000 unit PO DAILY 10/26/16 02/15/18 Multivitamin [One Daily Essential] 1 tab PO DAILY 10/26/16 02/15/18 Acetaminophen [Tylenol Arthritis] 2 tab PO BID PRN 02/24/17 02/15/18 Atorvastatin [Lipitor] 40 mg PO HS 05/05/17 02/15/18 Cyclobenzaprine [Flexeril] 5 mg PO BID PRN 05/05/17 02/15/18 Warfarin [Coumadin] 2 mg PO AD 05/05/17 02/15/18 Previous Rx's Medication Instructions Recorded Aspirin 81 mg PO DAILY #90 tab.chew 12/28/15 Ciprofloxacin HCl [Cipro] 1 tab PO BID #10 tablet 02/15/18 Lactobacillus Acidophilus 1 tab PO BID #60 tablet 02/15/18 [Acidophilus Probiotic] metroNIDAZOLE [Flagyl] 1 tab PO TID #15 tablet 02/15/18 Allergies Allergy/AdvReac Type Severity Reaction Status Date / Time codeine Allergy See Verified 02/15/18 11:32 Comments promethazine [From Phenergan] Allergy See Verified 02/15/18 11:32 Comments Past Medical History - Past Medical History Medical history: Reports: DVT, other Surgical history: Reports: hysterectomy, other Psychiatric history: Reports: no psych history - Social History Smoking Status: Never smoker Smokeless Tobacco Status: No Alcohol use: Reports: none Drug use: Reports: none Physical Exam - General Limitations: no limitations General appearance: alert Course Course Narrative: accepted care from Dr. MoranIsa Cotton is a 67 ye rold female presents to the ED with compplaints of pain on the left side of her arm. Essentially she has a history of anuerysms and is anticoagulated and currently is on cipro/flagyl for therapy for a recent diagnosis of C.diff. She has mild abdominal pain and an US to rule out a aneurysm vs DVT on the left side of her arm as this is how she felt when she had one on the right side. PAtient CTA chest and neck are otherwise negtive and US and CT abp is pending. Patient is supratherapeutic INR and likely will need to be admitted. - Reevaluation(s) Reevaluation #1: updated patient and she is agreeable to plan Time: 09:39 - Consultations Consultation #1: discussed case with Dr. Aguilar and he accepts pstinet to his service Time: 09:39 Vital Signs Temperature 98.1 F 02/20/18 04:16 Pulse Rate 90 02/20/18 04:16 Respiratory Rate 18 02/20/18 04:16 Blood Pressure 112/75 02/20/18 04:16 O2 Sat by Pulse Oximetry 98 02/20/18 04:16 Temperature 98.1 F 02/20/18 04:16 Pulse Rate 93 02/20/18 09:30 Respiratory Rate 18 02/20/18 09:30 Blood Pressure 130/71 02/20/18 09:30 O2 Sat by Pulse Oximetry 98 02/20/18 09:30 Oxygen Delivery Oxygen Delivery Room Air Medical Decision Making - Lab Data Result diagrams: 02/20/18 04:25 02/20/18 04:25 Lab Results 02/20/18 02/20/18 02/20/18 Range/Units 04:25 04:25 04:25 WBC 15.4 H (4.3-11.1) K/mcL RBC 3.95 (3.82-4.97) M/mcL Hgb 10.9 L D (11.5-15.4) g/dL Hct 34.2 L (35.3-44.9) % MCV 86.6 (83.0-100.0) fL MCH 27.6 L (28.0-33.3) pg MCHC 31.9 (31.6-35.5) g/dL RDW 13.2 (11.5-14.5) % Plt Count 263 (140-400) K/mcL MPV 8.9 L (9.4-12.4) fL Immature Gran % 0.4 (0-4) % Seg Neutrophils % 73.7 % Lymphocytes % 12.5 % Monocytes % 11.1 % Eosinophils % 1.9 % Basophils % 0.4 % Neutrophils # 11.3 H (1.6-8.9) K/mcL Lymphocytes # 1.9 (0.6-4.6) K/mcL Monocytes # 1.7 H (0.0-1.3) K/mcL Eosinophils # 0.3 (0.0-0.6) K/mcL Basophils # 0.1 (0.0-0.2) K/mcL PT 63.4 H* (9.4-12.1) Seconds INR 5.6 H* APTT 45.0 H (26.0-36.0) Seconds Sodium 137 (136-145) mEq/L Potassium 3.7 (3.5-5.1) mEq/L Chloride 104 (98-107) mEq/L Carbon Dioxide 25 (23-29) mEq/L BUN 11 (8-23) mg/dL Creatinine 0.60 (0.60-1.20) mg/dL Est GFR ( Amer) > 60 (> 60) Est GFR (Non-Af Amer) > 60 (> 60) BUN/Creatinine Ratio 18 (6-26) Glucose 109 H (70-105) mg/dL Calculated Osmolality 284 (280-300) Calcium 8.3 L (8.6-10.3) mg/dL Total Bilirubin 0.3 (0.3-1.0) mg/dL Direct Bilirubin 0.0 (0.0-0.2) mg/dL Indirect Bilirubin 0.3 (0.0-1.2) mg/dL AST 23 (13-39) Units/L ALT 20 (7-52) Units/L Alkaline Phosphatase 74 (34-104) Units/L Troponin I < 0.03 (< 0.04) ng/mL Serum Total Protein 5.5 L (6.4-8.9) g/dL Albumin 3.4 L (3.5-5.7) g/dL Globulin 2.1 L (2.4-3.5) g/dL Albumin/Globulin Ratio 1.6 (1.1-2.2)
[2018-02-20 08:41] LABS: Alanine Aminotransferase 20 Units/L (7-52); Albumin 3.4 g/dL (3.5-5.7); Albumin/Globulin Ratio 1.6 (1.1-2.2); Alkaline Phosphatase 74 Units/L (34-104); Aspartate Amino Transferase 23 Units/L (13-39); Bilirubin,Indirect 0.3 mg/dL (0.0-1.2); Bilirubin,Total 0.3 mg/dL (0.3-1.0); Globulin 2.1 g/dL (2.4-3.5); Total Protein 5.5 g/dL (6.4-8.9)
[2018-02-20] MEDS ORDERED: *HR* FentaNYL (PF) 100 MCG/2 ML VIAL IVP ONE (09:02)
[2018-02-20] MEDS ORDERED: Acetaminophen 325 MG TABLET PO PRN (10:45)
[2018-02-20] MEDS ORDERED: Naloxone 0.4 MG/ML INJ IVP PRN (10:45)
[2018-02-20] MEDS ORDERED: Potassium Chloride Elixir 20 MEQ/15 ML UDC PO ONE (10:56)
--- NOTE | 2018-02-20 11:16 | Internal Med History&Physical ---
Addendum entered and electronically signed by Gareth Tong MSIII 02/21/18 14:58: Original Note: <Gareth Tong - Last Filed: 02/20/18 11:16> Date of Encounter: 02/20/18 Time of Encounter: 10:30 Internal Medicine - H&P: HPI Chief complaint: Left arm pain Admitted From: Emergency Dept Plans for Post Hospital Care: Home History of present illness: Ms. Fine is a 67 year old female who presents with Left arm pain. 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 Diff infection diagnosed 02/15. Pt reports that at the time of her cervical rib removal at the [facility] back in April, the pt was told she would need to have a similar procedure on her left side. At the time she declined due to being asymptomatic. Pt states that the pain in her left arm began last evening around 7pm. The pain started as the pt reached into her coat pocket to get her phone. The pain is located in the upper shoulder and left clavicular region that radiates down her arm but not her neck or back. Overnight the pt reports the pain progressively worsening and losing both sensation and the ability to move her arm. She denies alleviating or exacerbating factors. Initial work up in the emergency department reveals elevated WBC count (15), HGB (10.9), INR (5.6), and negative troponins. Chest CTA, Neck CTA, CXR, and abdomen/pelvis CT reveal no acute cause of her pain. Patient admits to non-anginal chest pain, fatigue, diarrhea, and nausea. Denies Headache, dizziness, changes in vision or hearing, shortness of breath, coughing, wheezing, changes in urination. Past Med Surg Social Fam HX - Past Medical History Medical history: DVT, GERD, other Additional medical history: right arm severe blood clots, vitamin D deficiency, hernia that needs surgery, lupus atb positive, fibroid tumor, varicose veins Psychiatric history: no psych history - Past Surgical History Surgical History: hysterectomy, other Additional surgical history: emergent right brachial artery thromboembolectomy, colonoscopy - Social History Smoking Status: Never smoker Smokeless Tobacco Status: No Alcohol use: none Drug use: none - Family History Mother Cause of : Leukemia Hx Family Cardiac Disorders: No Hx Family Cancer: Yes Hx Family Medical Disorders: Yes (Brother and sister: Hx of Shelley) Father Cause of : Colon Cancer Hx Family Cardiac Disorders: No Internal Medicine - H&P: Meds Aspirin 81 mg PO DAILY #90 tab.chew 12/28/15 [Rx] Cholecalciferol (D-3) [Vitamin D] 5,000 unit PO DAILY 10/26/16 [History] Multivitamin [One Daily Essential] 1 tab PO DAILY 10/26/16 [History] Acetaminophen [Tylenol Arthritis] 2 tab PO BID PRN 02/24/17 [History] Atorvastatin [Lipitor] 40 mg PO HS 05/05/17 [History] Cyclobenzaprine [Flexeril] 5 mg PO BID PRN 05/05/17 [History] Warfarin [Coumadin] 2 mg PO AD 05/05/17 [History] Ciprofloxacin HCl [Cipro] 1 tab PO BID #10 tablet 02/15/18 [Rx] Lactobacillus Acidophilus [Acidophilus Probiotic] 1 tab PO BID #60 tablet 02/15/18 [Rx] metroNIDAZOLE [Flagyl] 1 tab PO TID #15 tablet 02/15/18 [Rx] Allergy/AdvReac Type Severity Reaction Status Date / Time codeine Allergy See Verified 02/15/18 11:32 Comments promethazine [From Phenergan] Allergy See Verified 02/15/18 11:32 Comments All Systems PM: A 10-system review of systems was performed and is negative for pertinent findings except as documented above in the HPI. - Constitutional Constitutional: as per HPI - EENT Eyes: as per HPI Ears: as per HPI Nose, mouth and throat: as per HPI - Breasts Breasts: as per HPI - Cardiovascular Cardiovascular ROS IM: as per HPI - Respiratory Respiratory: as per HPI - Gastrointestinal Gastrointestinal: as per HPI - Genitourinary Genitourinary: as per HPI Menstruation: as per HPI - Musculoskeletal Musculoskeletal ROS IM: as per HPI - Integumentary Integumentary IM: as per HPI - Neurological Neurological ROS: as per HPI - Psychiatric Psychiatric: as per HPI - Endocrine Endocrine IM: as per HPI - Allergic/Immunologic Allergic/Immunologic: as per HPI - Constitutional Vitals: Temp Pulse Resp BP Pulse Ox 98.1 F 93 18 130/71 98 02/20/18 04:16 02/20/18 09:30 02/20/18 09:30 02/20/18 09:30 02/20/18 09:30 Exam: General: A&Ox3, ill appearing female who looks uncomfortable Head: normocephalic, atraumatic, PEERL Neck: neck is soft, trachea midline, no cervical lymphadenopathy CV: RRR, normal S1 and S2, no murmurs gallops or rubs Resp: CTA bilaterally with normal breath sounds, no wheezes rhonchi or rales GI: abdomen soft, None tender to palpation, No guarding, no rigidity, or rebound tenderness. BSx4 Extremities: Right upper extremity strength and sensation intact, radial pulse diminished. Pt cannot freely move left upper extremity, sensation diffusely diminished, radial pulse bounding. Lower extremity strength and sensation intact Internal Med - H&P Results - Labs CBC & Chem 7: 02/20/18 04:25 02/20/18 04:25 Labs: Short CBC 02/20/18 Range/Units 04:25 WBC 15.4 H (4.3-11.1) K/mcL Hgb 10.9 L D (11.5-15.4) g/dL Hct 34.2 L (35.3-44.9) % Plt Count 263 (140-400) K/mcL Neutrophils # 11.3 H (1.6-8.9) K/mcL BMP 02/20/18 04:25 Sodium 137 Potassium 3.7 Chloride 104 Carbon Dioxide 25 BUN 11 Creatinine 0.60 Glucose 109 H Calcium 8.3 L Cardiac Enzymes 02/20/18 Range/Units 04:25 Troponin I < 0.03 (< 0.04) ng/mL Liver Function 02/20/18 Range/Units 04:25 Total Bilirubin 0.3 (0.3-1.0) mg/dL Direct Bilirubin 0.0 (0.0-0.2) mg/dL AST 23 (13-39) Units/L ALT 20 (7-52) Units/L Alkaline Phosphatase 74 (34-104) Units/L Albumin 3.4 L (3.5-5.7) g/dL - Impressions ITS Impressions Chest CTA 02/20/18 03:32 IMPRESSION: Suboptimal opacification of the pulmonary arteries degrades evaluation for pulmonary thromboembolic disease. Given this, no evidence of central pulmonary thromboembolic disease. No pulmonary hypertension or right ventricular strain. No pulmonary mass or consolidation. D/ / Todd Sessions / Todd Sessions Interpreting Provider: Todd Sessions Chest X-Ray 02/20/18 03:32 IMPRESSION: No acute cardiopulmonary process. D/ / Todd Sessions / Todd Sessions Interpreting Provider: oTdd Sessions Neck CTA 02/20/18 03:33 IMPRESSION: CTA of the neck without acute arterial abnormality. Congenitally hypoplastic left vertebral artery. D/ : / 02/20/2018 07:53:10 Khoi De La Torre / Mary Roque Interpreting Provider: Khoi De La Torre Abdomen/Pelvis CT 02/20/18 06:34 IMPRESSION: 1. Multiple hypoattenuating lesions throughout the liver suggestive of liver cysts which are stable in size from prior exam performed 11/15/2017. The largest cyst has increased in size slightly when compared to prior from 2014. 2. Cholelithiasis. D/ / Dontae Sharma / Dontae Sharma Interpreting Provider: Dontae Sharma - Assessment and plan (1) Chest pain Current Visit: Yes Status: Acute Assessment and plan: Non-anginal chest pain, pt reports left arm pain that radiates into the left subclavicular area. -CTA negative for PE, CXR unremarkable, HEART score 4, MAYE score 2 -03/03/17 pharm stress test negative for ischemia or infarct -03/07/17 echo showed EF of 60%, mild diastolic dysfunction, no valvular dysfunction Plan: -telemetry -echo pending -trend troponins -NPO after midnight, consider stress test in the morning if echo abnormal (2) C. difficile diarrhea Current Visit: Yes Status: Acute Assessment and plan: Pt had labs positive for C. Diff on 02/15 -of note, she was recently on antibiotics for a sinus infection -was on cipro + flagyl for outpatient therapy Plan: -Start oral vancomysin -D/C Cipro + flagyl (3) Leukocytosis Current Visit: Yes Status: Acute Assessment and plan: Likely secondary to C. Diff, Plan as above (4) Thoracic outlet syndrome Current Visit: Yes Status: Acute Assessment and plan: Pt with a history of thoracic outlet syndrome treated at [facility] earlier in 2018 - s/p R brachial artery thromboembolctomy angioplasty x2 in 2015 and 2016 - thoracic outlet syndrome s/p right sided cervical rib removal (apr 2017) -12/21/16 angiogram showed normal aortic arch and great vessels (5) Supratherapeutic INR Current Visit: Yes Status: Acute Assessment and plan: INR 5.6, no signs of bleeding Plan: -hold coumadin for now -will continue to monitor INR (6) History of DVT (deep vein thrombosis) Current Visit: Yes Status: Acute Assessment and plan: Plan as above (7) DVT prophylaxis Current Visit: Yes Status: Acute Assessment and plan: EPCDs - Time Spent With Patient Total time spent is greater than 50% in coordination of care (as documented) at patient's floor/unit and/or counseling patient: <Rafi Aguilar - Last Filed: 02/20/18 13:08> Date of Encounter: 02/20/18 Time of Encounter: 12:39 Internal Medicine - H&P: HPI Admitted From: Emergency Dept Plans for Post Hospital Care: Home History of present illness: Ms. Fine is a 67 year old female Past Med Surg Social Fam HX - Past Medical History Attestation: Yes The following information was validated with the patient. Source: patient All Systems PM: A 10-system review of systems was performed and is negative for pertinent findings except as documented above in the HPI. - Constitutional Constitutional: malaise - EENT Eyes: no change in vision, no discharge, no pain, no photophobia Ears: no ear discharge, no ear pain, no tinnitus Nose, mouth and throat: no dysphagia, no nasal discharge, no neck pain, no sore throat - Cardiovascular Cardiovascular ROS IM: no chest pain, no diaphoresis, no dyspnea, no lightheadedness, no palpitations, no syncope - Respiratory Respiratory: no cough, no dyspnea, no wheezing, no excessive phlegm production - Gastrointestinal Gastrointestinal: diarrhea, loose stools, no abdominal pain, no hematemesis, no hematochezia, no melena, no nausea, no vomiting - Genitourinary Genitourinary: no change in urinary stream, no dysuria, no flank pain, no hematuria - Musculoskeletal Musculoskeletal ROS IM: limited range of motion, numbness, tingling, other (Left shoulder pain) - Integumentary Integumentary IM: no rash, no unusual bruising - Neurological Neurological ROS: no confusion, no convulsions, no focal weakness, no numbness, no tingling, no tremor(s) - Hematologic/Lymphatic Hematologic/Lymphatic: no easy bruising - Constitutional Vitals: Temp Pulse Resp BP Pulse Ox 98.1 F 93 18 130/71 98 02/20/18 04:16 02/20/18 09:30 02/20/18 09:30 02/20/18 09:30 02/20/18 09:30 Exam: General: Patient is alert, no acute distress, oriented x 3 Head: atraumatic, normocephalic, ENT: Mucous membranes moist Eye: normal appearance, PERRL, no scleral icterus, no conjunctival injection Neck: normal inspection, trachea midline, full ROM, no carotid bruits Chest: normal inspection, symmetric chest rise Respiratory: Good respiratory effort. Normal breath sounds. No wheezing or crackles. Cardiovascular: Regular rate and rhythm. s1 and s2 normal No clicks, rubs, gallops, or murmurs. No pedal edema Abdomen: Abdomen is soft, nontender. Bowel sounds are present Musculoskeletal: Tenderness at left shoulder joint. Patient unable to left arm due to pain in the shoulder region. Does get spasms of pain radiating down her left arm during examination. Skin: warm, dry, intact. Neuro: Alert oriented x 3 normal cranial nerves, decreased strength in left upper extremity mainly due to pain Psych: Patient's affect is normal Internal Med - H&P Results - Labs CBC & Chem 7: 02/20/18 04:25 02/20/18 04:25 Labs: Short CBC 02/20/18 Range/Units 04:25 WBC 15.4 H (4.3-11.1) K/mcL Hgb 10.9 L D (11.5-15.4) g/dL Hct 34.2 L (35.3-44.9) % Plt Count 263 (140-400) K/mcL Neutrophils # 11.3 H (1.6-8.9) K/mcL BMP 02/20/18 04:25 Sodium 137 Potassium 3.7 Chloride 104 Carbon Dioxide 25 BUN 11 Creatinine 0.60 Glucose 109 H Calcium 8.3 L Cardiac Enzymes 02/20/18 Range/Units 04:25 Troponin I < 0.03 (< 0.04) ng/mL Liver Function 02/20/18 Range/Units 04:25 Total Bilirubin 0.3 (0.3-1.0) mg/dL Direct Bilirubin 0.0 (0.0-0.2) mg/dL AST 23 (13-39) Units/L ALT 20 (7-52) Units/L Alkaline Phosphatase 74 (34-104) Units/L Albumin 3.4 L (3.5-5.7) g/dL - Impressions ITS Impressions Chest CTA 02/20/18 03:32 IMPRESSION: Suboptimal opacification of the pulmonary arteries degrades evaluation for pulmonary thromboembolic disease. Given this, no evidence of central pulmonary thromboembolic disease. No pulmonary hypertension or right ventricular strain. No pulmonary mass or consolidation. D/ / Todd Sessions / Todd Sessions Interpreting Provider: Todd Sessions Chest X-Ray 02/20/18 03:32 IMPRESSION: No acute cardiopulmonary process. D/ / Todd Sessions / Todd Sessions Interpreting Provider: Todd Sessions Neck CTA 02/20/18 03:33 IMPRESSION: CTA of the neck without acute arterial abnormality. Congenitally hypoplastic left vertebral artery. D/ / 02/20/2018 07:53:10 Khoi De La Torre / Mary Roque Interpreting Provider: Khoi De La Torre Abdomen/Pelvis CT 02/20/18 06:34 IMPRESSION: 1. Multiple hypoattenuating lesions throughout the liver suggestive of liver cysts which are stable in size from prior exam performed 11/15/2017. The largest cyst has increased in size slightly when compared to prior from 2014. 2. Cholelithiasis. D/ / Dontae Kutlick / Dontae Kutlick Interpreting Provider: Dontae Sharma - Assessment and plan (1) Left arm pain Current Visit: Yes Status: Acute Assessment and plan: Possible anginal equivalent versus rotator cuff tendinitis. Trend troponins. Telemetry monitoring. Had stress test 1 year back which was negative. Will obtain 2-D echocardiogram. If any new changes on 2-D echo, consider repeat stress testing or cardiology consultation in morning. For now keep nothing by mouth after midnight. Check lipid profile, check A1c. Consult orthopedics for evaluation for possible rotator cuff tendinitis. (2) C. difficile diarrhea Current Visit: Yes Status: Acute Assessment and plan: Patient with C. difficile diarrhea. Was previously on Cipro and Flagyl. Will change to oral vancomycin per infectious disease Society guidelines. Leukocytosis likely related to C. difficile diarrhea. We will monitor. (3) History of DVT (deep vein thrombosis) Current Visit: Yes Status: Acute (4) Thoracic outlet syndrome Current Visit: Yes Status: Acute Assessment and plan: Patient previously had right-sided brachial artery occlusion and thoracic outlet syndrome for which she was treated with surgery. Currently her pain is on the left side. CT angiogram does not show any new aneurysms in this location. (5) Supratherapeutic INR Current Visit: Yes Status: Acute Assessment and plan: INR is supratherapeutic. Hold Coumadin until INR and target INR less than 3. - Time Spent With Patient Total time spent is greater than 50% in coordination of care (as documented) at patient's floor/unit and/or counseling patient: - Attending Attestation The history, physical exam, and medical decision making was performed by the medical student either while I was physically present and actively involved or I personally re-performed the exam and medical decision making. I have verified the accuracy of the medical student's documentation with regards to the history, physical exam findings, and medical decision making on 02/20/18 Patient with history of prior thoracic outlet syndrome due to cervical drip and right-sided brachial artery occlusion currently on anticoagulation presented to the hospital with complaints of left arm pain and weakness related to pain in the left upper extremity. Symptoms began about one week back. Patient was also seen in the ER at that time for diarrhea. She just finished a course of antibiotics. She was placed on Cipro and Flagyl and sent home. Stool studies were then positive for C. difficile. Patient denies any shortness of breath. No dysuria. Patient has difficulty raising the left upper extremity given to shoulder level due to severe pain. She denies any injury or trauma. She reports that she was advised to eventually have her left cervical rib also removed. She denies any blurred vision. No other focal weakness or numbness.
[2018-02-20] MEDS: Vancomycin Oral Soln 125 MG/2.5 ML UDC PO SCH ×3 (12:37→21:18)
[2018-02-20] MEDS: OXYCODONE Oral CONC 10 MG/0.5 ML ORAL.SYG SL PRN ×2 (14:37→21:19)
[2018-02-20 14:42] LABS: Basophils # 0.1 K/mcL (0.0-0.2); Basophils % 0.3 %; Eosinophils % 0.2 %; Hematocrit 37.7 % (35.3-44.9); Hemoglobin 11.7 g/dL (11.5-15.4); Immature Granulocytes % 0.2 % (0-4); Lymphocytes # 2.1 K/mcL (0.6-4.6); Lymphocytes % 12.5 %; Mean Corpuscular Hemoglobin 27.2 pg (28.0-33.3); Mean Corpuscular Volume 87.7 fL (83.0-100.0); Monocytes # 2.2 K/mcL (0.0-1.3); Monocytes % 13.6 %; Neutrophils # 12.1 K/mcL (1.6-8.9); Platelet Count 287 K/mcL (140-400); Red Cell Distribution Width 13.1 % (11.5-14.5); Segmented Neutrophils % 73.2 %
[2018-02-20] MEDS ORDERED: ACETAMINOPHEN PO PRN (16:39)
--- NOTE | 2018-02-20 17:07 | Orthopedic Consult Note ---
Date of Encounter: 02/20/18 Time of Encounter: 17:07 Assessment and Plan (1) Left shoulder pain Current Visit: Yes Status: Acute Reviewed with Dr. Perez re: shoulder. At this point given sudden onset and rapid loss of use of the left upper extremity, orthopedic involvement is unlikely to be primary causation in the absence of trauma. Concern exists for such pathology as AC joint irritation and/or rotator cuff however patient's inability to perform shoulder motion limits examination. Patient otherwise does not appear to have a localized nerve involvement to suggest spinal abnormality at this time. Vascular surgery consulted secondary to patient's history of thoracic outlet to the right and presentation with rapid onset of what appears to be thoracic outlet to the left, though, as discussed with Dr. Roach, patient does have pulse present at time of this provider's exam to the left upper extremity. Will order MAAME for further evaluation. Will order shoulder MRI to evaluate for shoulder pathology. Will follow re: shoulder MRI and reevaluate. Discussed with Dr. Aguilar re: concern for vascular involvement and MAAME order. Thank you for the consultation. Please contact if we can be of any further assistance. Qualifiers: Chronicity: acute Qualified Code(s): M25.512 - Pain in left shoulder (2) Left arm pain Current Visit: Yes Status: Acute Consult to vascular for further evaluation given patient's history of thoracic outlet syndrome History of Present Illness Chief complaint: left shoulder/arm pain HPI: Ms. Fine is a 67 year old female presenting to [facility] with extremity pain. She states it started yesterday midday as an aching and progressed to intense pain by evening when she reached in her coat pocket for her cell phone. She states th at she has had both increasing pain and decreasing function to the LUE over the past appx 24 hours. She admits to altered sensation of the left hand and pain to the left upper extremity beginning with the shoulder without radiation. She denies any trauma to the LUE. She denies a history of this phenomenon in the past to this extremity. 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 She states that she recently followed up with her specialist there in October 2017 and was told she would need a similar procedure to her left outlet to prevent LUE compromise per patient. She states that they chose a watch and wait approach at that time and up until now has had no issues for cause of concern per patient. On exam she is resting comfortably in bed with spouse at bedside. She has LUE resting by her side. No gross deformity or discoloration noted on initial exam. Mild swelling noted to the left hand though it appears patient had an IV in that area earlier. IV noted to left forearm. Tenderness to palpation of the shoulder musculature and around the AC joint and prominently along the clavicle. Pulses intact bilaterally. Sensation altered to palpation of the left hand both palmar and dorsal aspects per patient. ROM of the left shoulder is extremely limited. Patient is able to tolerate some passive motion. Motion is slow though elbow and wrist AROM is full. Pronation/supination causes discomfort to the shoulder per patient. Finger ROM is full. Aba Tutor strength is weak, appx 3/5 compared to the right hand. Right shoulder, elbow, wrist, and finger ROM is full with full strength. Scarring noted to right ACfossa and right proximal chest wall from previous vascular surgery per patient. Imaging review: CT/CT angio chest IMPRESSION: Suboptimal opacification of the pulmonary arteries degrades evaluation for pulmonary thromboembolic disease. Given this, no evidence of central pulmonary thromboembolic disease. No pulmonary hypertension or right ventricular strain. No pulmonary mass or consolidation. D/ / Todd Sessions / Todd Sessions XR/XR chest 1V portable IMPRESSION: No acute cardiopulmonary process. D/ / Todd Sessions / Todd Sessions CT/CT angio neck IMPRESSION: CTA of the neck without acute arterial abnormality. Congenitally hypoplastic left vertebral artery. D/ / 02/20/2018 07:53:10 Khoi De La Torre / Mary Roque Assessment: Left shoulder pain Left upper extremity pain Paresthesia left hand Reviewed with Dr. Perez re: shoulder. At this point given sudden onset and rapid loss of use of the left upper extremity, orthopedic involvement is unlikely to be primary causation in the absence of trauma. Concern exists for such pathology as AC joint irritation a nd/or rotator cuff however patient's inability to perform shoulder motion limits examination. Patient otherwise does not appear to have a localized nerve involvement to suggest spinal abnormality at this time. Vascular surgery consulted secondary to patient's history of thoracic outlet to the right and presentation with rapid onset of what appears to be thoracic outlet to the left, though, as discussed with Dr. Roach, patient does have pulse present at time of this provider's exam to the left upper extremity. Will order MAAME for further evaluation. Will order shoulder MRI to evaluate for shoulder pathology. Will follow re: shoulder MRI and reevaluate. Discussed with Dr. Aguilar re: concern for vascular involvement and MAAME order. Thank you for the consultation. Please contact if we can be of any further assistance. Past Med Surg Social Fam HX - Past Medical History Medical history: DVT, GERD, other Additional medical history: right arm severe blood clots, vitamin D deficiency, hernia that needs surgery, fibroid tumor, varicose veins Psychiatric history: no psych history - Past Surgical History Surgical History: hysterectomy, other Additional surgical history: emergent right brachial artery thromboembolectomy, colonoscopy - Social History Smoking Status: Never smoker Smokeless Tobacco Status: No Alcohol use: none Drug use: none - Family History Mother Cause of : Leukemia Hx Family Cardiac Disorders: No Hx Family Cancer: Yes Hx Family Medical Disorders: Yes (Brother and sister: Hx of Anuerysms) Father Cause of : Colon Cancer Hx Family Cardiac Disorders: No Medications and Allergies Aspirin 81 mg PO DAILY #90 tab.chew 12/28/15 [Rx] Cholecalciferol (D-3) [Vitamin D] 5,000 unit PO DAILY 10/26/16 [History] Multivitamin [One Daily Essential] 1 tab PO DAILY 10/26/16 [History] Acetaminophen [Tylenol Arthritis] 2 tab PO BID PRN 02/24/17 [History] Warfarin [Coumadin] 4 mg PO WEBSTER 05/05/17 [History] Ciprofloxacin HCl [Cipro] 1 tab PO BID #10 tablet 02/15/18 [Rx] Lactobacillus Acidophilus [Acidophilus Probiotic] 1 tab PO BID #60 tablet [Rx] metroNIDAZOLE [Flagyl] 1 tab PO TID #15 tablet 02/15/18 [Rx] Atorvastatin Calcium [Lipitor] 20 mg PO DAILY 02/20/18 [History] Warfarin Sodium 3 mg PO MOTUWETHFRSA 02/20/18 [History] Allergy/AdvReac Type Severity Reaction Status Date / Time codeine Allergy See Verified 02/15/18 11:32 Comments promethazine [From Phenergan] Allergy See Verified 02/15/18 11:32 Comments All Systems Reviewed: The remainder of the systems were reviewed and are negative Physical Exam - Constitutional Vitals: Temp Pulse Resp BP Pulse Ox 99.6 F 99 14 120/74 98 02/20/18 12:37 02/20/18 12:37 02/20/18 12:37 02/20/18 12:37 02/20/18 12:37 Results - Labs Result Diagrams: 02/20/18 18:49 02/20/18 04:25 Labs: Abnormal lab results WBC 16.5 K/mcL (4.3-11.1) H 02/20/18 14:10 MCH 27.2 pg (28.0-33.3) L 02/20/18 14:10 MCHC 31.0 g/dL (31.6-35.5) L 02/20/18 14:10 MPV 9.0 fL (9.4-12.4) L 02/20/18 14:10 Neutrophils # 12.1 K/mcL (1.6-8.9) H 02/20/18 14:10 Monocytes # 2.2 K/mcL (0.0-1.3) H 02/20/18 14:10 PT 63.4 Seconds (9.4-12.1) H* 02/20/18 04:25 INR 5.6 H* 02/20/18 04:25 APTT 45.0 Seconds (26.0-36.0) H 02/20/18 04:25 Glucose 109 mg/dL (70-105) H 02/20/18 04:25 Calcium 8.3 mg/dL (8.6-10.3) L 02/20/18 04:25 Serum Total Protein 5.5 g/dL (6.4-8.9) L 02/20/18 04:25 Albumin 3.4 g/dL (3.5-5.7) L 02/20/18 04:25 Globulin 2.1 g/dL (2.4-3.5) L 02/20/18 04:25 H & H 02/20/18 02/20/18 Range/Units 04:25 14:10 Hgb 10.9 L D 11.7 (11.5-15.4) g/dL Hct 34.2 L 37.7 (35.3-44.9) % All other labs normal. Consult Discharge Plan - Plan Referrals: Yaa Pantoja, BERONICA [Primary Care Provider] -
[2018-02-20 19:39] LABS: Basophils % 0.2 %; Eosinophils # 0.1 K/mcL (0.0-0.6); Eosinophils % 0.5 %; Hematocrit 36.8 % (35.3-44.9); Hemoglobin 11.8 g/dL (11.5-15.4); Immature Granulocytes % 0.2 % (0-4); Lymphocytes # 2.4 K/mcL (0.6-4.6); Lymphocytes % 17.1 %; Mean Corpuscular HGB Conc 32.1 g/dL (31.6-35.5); Mean Corpuscular Hemoglobin 27.6 pg (28.0-33.3); Mean Platelet Volume 9.3 fL (9.4-12.4); Monocytes # 1.8 K/mcL (0.0-1.3); Monocytes % 12.8 %; Neutrophils # 9.6 K/mcL (1.6-8.9); Platelet Count 292 K/mcL (140-400); Red Blood Count 4.28 M/mcL (3.82-4.97); Red Cell Distribution Width 13.2 % (11.5-14.5); Segmented Neutrophils % 69.2 %
[2018-02-20 20:26] LABS: INR 5.5
--- NOTE | 2018-02-20 20:41 | Vascular/Endovasc Consult Note ---
Date of Encounter: 02/20/18 Time of Encounter: 19:30 Assessment and Plan (1) Brachial artery occlusion, right Current Visit: Yes Status: Chronic Status post previous brachial artery surgery 2 and right subclavian artery surgery 1 with right cervical rib resection. (2) Hypercoagulable state Current Visit: Yes Status: Chronic Patient has history per chart of lupus anticoagulant. She is on Coumadin therapy managed via the hematology clinic. (3) Left arm pain Current Visit: Yes Status: Acute Unexplained left upper extremity pain. The pain is out of proportion to the physical findings and her history. There is no obvious vascular emergency and the patient has normal vascular exam of the left upper extremity. I will obtain upper extremity noninvasive testing for follow-up in regards to the right upper extremity. I would recommend further evaluation from neurology for the left upper extremity pain. There are no findings to suggest left upper extremity compartment syndrome. Vascular surgery intervention or angiography is not anticipated. (4) Supratherapeutic INR Current Visit: Yes Status: Acute To be managed by the medical service. - History of Present Illness Consult date: 02/20/18 Consult reason: Left upper extremity pain Chief complaint: Left upper extremity pain History of present illness: Ms. Fine is a 67 year old female With a very, located and complex past history. At this time the patient was admitted early this morning via the emergency room. Patient states she was out with her friends looking at [place] lights in an automobile when she had the sudden onset of left upper extremity pain. She had difficulty lifting her arm up and out of a pocket of a coat. The pain became worse and worse to the point that she needed medical attention and came to the emergency room in the welder gas tungsten arc hours of today. She denies any history of trauma or injury or motor vehicle accident. She has not had any similar type of symptoms in the left upper extremity. The patient denies any symptoms that would be consistent with left upper extremity arterial thrombosis or arterial embolization. The patient was r ecently diagnosed as having C. difficile colitis secondary to diarrhea. She was seen by a number of physicians and was ultimately admitted. The patient states that her upper extremities feeling mildly improved since she was admitted. The patient was seen by the orthopedic surgery service earlier today and did not find a rotator cuff tear. Because of the pain and past vascular surgery history they had requested a vascular surgery consult this evening. A number of studies were performed. These include a chest x-ray, CT angiogram of the chest, CTA of the neck, CT scan of the abdomen and pelvis, and a left upper extremity venous duplex scan. 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 There is no finding to suggest acute arterial disease or embolization or dissection or aneurysm. She does have significant cervical spine disease with foraminal stenosis and spinal cord stenosis. Chest x-ray was reported as negative though the patient has a history of a left cervical rib. CT scan of the chest showed no pulmonary embolism. CT scan of the abdomen and pelvis demonstrated multiple liver cysts. The left upper extremity venous duplex scan was negative for DVT. The patient's past history is significant for apparent lupus anticoagulant syndrome. She had suffered a right upper extremity embolus and was taken to the operating room in December [address] Galvan. She was placed on Xarelto therapy. The patient had recurrence of her right upper extremity thrombosis and was taken back to the operating room in January 2017. She eventually was referred to the [facility]. 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 At the time of this dictation I do not have specific information regarding the surgery and the operative findings. The patient was informed that they had identified as well a left cervical rib. She was recommended to undergo surgery for this but she had deferred and was on a follow-up basis. She was last seen in the clinic in June 2017. The physician that she sees at the [facility] is Dr. Jose Manuel Schaefer. Here at [place] the patient sees Dr. Ag for her anticoagulation status and she has been converted from Xarelto to Coumadin due to the cost. Past Med Surg Social Fam HX - Past Medical History Medical history: DVT, GERD, other Additional medical history: right arm severe blood clots, vitamin D deficiency, hernia that needs surgery, fibroid tumor, varicose veins Psychiatric history: no psych history - Past Surgical History Surgical History: hysterectomy, other Additional surgical history: emergent right brachial artery thromboembolectomy, colonoscopy - Social History Smoking Status: Never smoker Smokeless Tobacco Status: No Alcohol use: none Drug use: none - Family History Mother Cause of : Leukemia Hx Family Cardiac Disorders: No Hx Family Cancer: Yes Hx Family Medical Disorders: Yes (Brother and sister: Hx of Shelley) Father Cause of : Colon Cancer Hx Family Cardiac Disorders: No Medications and Allergies Aspirin 81 mg PO DAILY #90 tab.chew 12/28/15 [Rx] Cholecalciferol (D-3) [Vitamin D] 5,000 unit PO DAILY 10/26/16 [History] Multivitamin [One Daily Essential] 1 tab PO DAILY 10/26/16 [History] Acetaminophen [Tylenol Arthritis] 2 tab PO BID PRN 02/24/17 [History] Warfarin [Coumadin] 4 mg PO WEBSTER 05/05/17 [History] Ciprofloxacin HCl [Cipro] 1 tab PO BID #10 tablet 02/15/18 [Rx] Lactobacillus Acidophilus [Acidophilus Probiotic] 1 tab PO BID #60 tablet 02/15/18 [Rx] metroNIDAZOLE [Flagyl] 1 tab PO TID #15 tablet 02/15/18 [Rx] Atorvastatin Calcium [Lipitor] 20 mg PO DAILY 02/20/18 [History] Warfarin Sodium 3 mg PO MOTUWETHFRSA 02/20/18 [History] Allergy/AdvReac Type Severity Reaction Status Date / Time codeine Allergy See Verified 02/15/18 11:32 Comments promethazine [From Phenergan] Allergy See Verified 02/15/18 11:32 Comments All Systems Review: The remainder of the systems were reviewed and are negative Exam Vital Signs, Last 4 Hours Temp Pulse Resp BP Pulse Ox 02/20/18 19:43 98.9 F 109 16 112/79 94 General: Present: Conversant, Well developed, Well nourished HEENT: Present: Atraumatic, Normocephaly, Trachea midline Neck: Absent: JVD, Lymphadenopathy, Left Carotid bruit, Right Carotid bruit, Midline deformity, Tracheal deviation Cardiac: Present: Reg Rate and Rhythm, Normal S1 and S2, No Murmur Lungs: Present: Normal Breath Sounds, No Wheeze, Rales, Rhonchi Neuro: Present: Alert and responsive, Cranial nerves grossly intact, Other (Patient has pain out of proportion to manipulation of the left anterior shoulder and left upper extremity particularly in the area of the biceps and deltoid region. I can palpate no masses in this region. There are no bruits. There are no signs of external trauma. Certified Medical Assistant strength is normal and symmetric between the 2 upper extremities. The patient cannot flex or extend her elbow due to pain of the upper arm and shoulder area.). Absent: Motor nerves grossly intact Abdomen: Present: Soft, Non-tender. Absent: Masses Vascular: Present: Normal capillary refill, Pulse, absent (I do not palpate right upper extremity brachial, radial, or ulnar pulses. This apparently is a chronic situation.), Pulse, normal (Left upper extremity pulses are normal), Color/Temperature (Patient's hands are warm and pink. The left hand is warmer than the right.), Surgical incisions (Patient has a right antecubital incision that is well-healed from her previous arterial surgery). Absent: Bruit, Clubbing, Cyanosis, Edema Skin: Absent: No rashes noted on visualized skin, Wound/ulcer(s) Consult Discharge Plan - Plan Referrals: Yaa Pantoja, LINUX SOLARIS ADMINISTRATOR [Primary Care Provider] -
[2018-02-20] MEDS: Lactobacillus 1 EACH CAP.SPRINK PO SCH (21:17)
[2018-02-21 05:29] LABS: Basophils % 0.3 %; Eosinophils # 0.2 K/mcL (0.0-0.6); Hematocrit 33.2 % (35.3-44.9); Hemoglobin 10.8 g/dL (11.5-15.4); Immature Granulocytes % 0.3 % (0-4); Lymphocytes # 1.8 K/mcL (0.6-4.6); Lymphocytes % 17.2 %; Mean Corpuscular HGB Conc 32.5 g/dL (31.6-35.5); Mean Corpuscular Hemoglobin 27.6 pg (28.0-33.3); Mean Corpuscular Volume 84.7 fL (83.0-100.0); Mean Platelet Volume 9.2 fL (9.4-12.4); Monocytes # 1.5 K/mcL (0.0-1.3); Monocytes % 14.4 %; Platelet Count 266 K/mcL (140-400); Red Blood Count 3.92 M/mcL (3.82-4.97); Red Cell Distribution Width 13.4 % (11.5-14.5); Segmented Neutrophils % 65.8 %
[2018-02-21 05:50] LABS: BUN/Creatinine Ratio 9 (6-26); Blood Urea Nitrogen 5 mg/dL (8-23); Calcium 8.5 mg/dL (8.6-10.3); Carbon Dioxide 25 mEq/L (23-29); Chloride 105 mEq/L (98-107); Glucose 109 mg/dL (70-105); Magnesium 1.8 mg/dL (1.6-2.6); Osmolality,Calculated 278 (280-300); Phosphorous 2.7 mg/dL (2.7-4.5); Potassium 3.7 mEq/L (3.5-5.1); Sodium 135 mEq/L (136-145); eGFR For Non-African Americans > 60 (> 60)
[2018-02-21 05:53] LABS: INR 4.5; Prothrombin Time 50.8 Seconds (9.4-12.1)
--- NOTE | 2018-02-21 06:17 | Electrocardiograph Report ---
[place] [facility] Test Date: 2018-02-20 Pat Name: Jillian Fine Department: [id number] Room: 3B55 Gender: F Director Of Quality Control: : 1950 Requested By: Jose Villa Order Number: [id number] Reading MD: Ambrosio Martino Measurements Intervals [place] Rate: 95 P: 65 PA: 198 QRS: 13 QRSD: 98 T: 23 QT: 378 QTc: 476 Interpretive Statements Sinus rhythm Electronically Signed On 02-21-2018 6:15:54 EST by Ambrosio Martino
[2018-02-21] MEDS: Lactobacillus 1 EACH CAP.SPRINK PO SCH ×2 (08:42→20:29)
[2018-02-21] MEDS: Cholecalciferol (D-3) 1,000 UNIT TABLET PO SCH (08:42)
[2018-02-21] MEDS: Aspirin 81 MG TAB.CHEW PO SCH (08:42)
[2018-02-21] MEDS: Vancomycin Oral Soln 125 MG/2.5 ML UDC PO SCH ×4 (08:43→21:53)
[2018-02-21] MEDS: OXYCODONE Oral CONC 10 MG/0.5 ML ORAL.SYG SL PRN ×2 (08:44→15:57)
--- NOTE | 2018-02-21 14:41 | Vascular/Endovas Progress Note ---
Date of Encounter: 02/21/18 Time of Encounter: 08:30 - Assessment and plan (1) Brachial artery occlusion, right Current Visit: Yes Status: Chronic Status post previous brachial artery surgery 2 and right subclavian artery surgery 1 with right cervical rib resection. (2) Hypercoagulable state Current Visit: Yes Status: Chronic Patient has history per chart of lupus anticoagulant. She is on Coumadin therapy managed via the hematology clinic. (3) Left arm pain Current Visit: Yes Status: Acute Operative arterial exam has not yet been performed. MRI demonstrates left rotator cuff tear. Do not anticipate any need for vascular intervention at this time. We will sign off the case for now please reconsult as necessary. Thank you. (4) Supratherapeutic INR Current Visit: Yes Status: Acute To be managed by the medical service. The INR is 4.5 today. - Subjective Interval history: Patient had an uneventful night. She states that the arm feels slightly improved from yesterday. Still has significant pain on manipulation and at rest in the area of the anterior shoulder and upper left chest and anterior aspect of the left upper arm. Vital Signs, Last 4 Hours Temp Pulse Resp BP Pulse Ox 02/21/18 11:54 98.5 F 86 14 119/82 98 - Physical Examination General: Present: Conversant, No Apparent Distress, Well developed, Well nourished HEENT: Present: Atraumatic Neck: Absent: JVD Vascular: Present: Pulse, absent (No palpable right upper extremity pulses.), Pulse, normal (Patient has normal left upper extremity pulses.), Edema (No left upper extremity edema), Color/Temperature (Left hand is warm and pink) Results 02/21/18 05:01 02/21/18 05:01 Lab Results, Last 24 hours 02/20/18 02/20/18 02/20/18 14:10 18:49 18:49 WBC 16.5 H 13.9 H Hgb 11.7 11.8 Hct 37.7 36.8 Plt Count 287 292 INR Sodium Potassium Chloride Carbon Dioxide BUN Creatinine Glucose Calcium Magnesium Troponin I < 0.03 02/20/18 02/21/18 02/21/18 18:49 05:01 05:01 WBC 10.7 Hgb 10.8 L Hct 33.2 L Plt Count 266 INR 5.5 H* Sodium 135 L Potassium 3.7 Chloride 105 Carbon Dioxide 25 BUN 5 L Creatinine 0.58 L Glucose 109 H Calcium 8.5 L Magnesium 1.8 Troponin I 02/21/18 05:01 WBC Hgb Hct Plt Count INR 4.5 H* Sodium Potassium Chloride Carbon Dioxide BUN Creatinine Glucose Calcium Magnesium Troponin I - Imaging / Other Tests MRI/MRA: report reviewed Consult Discharge Plan - Plan Referrals: Yaa Pantoja, ELECTRIC MOTOR REPAIRMAN [Primary Care Provider] -
--- NOTE | 2018-02-21 15:06 | Internal Med Progress Note ---
Hospitalist Progress Note - Encounter Date of Encounter: 02/21/18 Time of Encounter: 15:02 - Subjective Interval History: Ms. 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 Diff infection diagnosed 02/15 who presented to ER with Left arm pain . The pain is located in the upper shoulder and left clavicular region that radiates down her arm but not her neck or back. Overnight the pt reports the pain progressively worsening and losing both sensation and the abili ty to move her arm. Pt was admitted in the hospital and placed her on tele. Her left shoulder pain is still 8/10 , gets better at time with pain medications. Requesting more frequent pain medications. - Exam Vitals: Temp Pulse Resp BP Pulse Ox 99.4 F 86 15 111/71 98 02/21/18 14:56 02/21/18 14:56 02/21/18 14:56 02/21/18 14:56 02/21/18 14:56 Exam: Gen: Alert, awake, Oriented to time,place and person Chest: Diminished breath sounds B/L, No wheezing, No crackles, No rales Heart: S1S2+ RRR No murmurs Abd: Soft, NT, BS +, No organomegaly Ext: Significant tenderness in Left shoulder with mild swelling. No erythema. Limited ROM in left shoulder No edema, pulses are palpable, No calf tenderness Neuro : Benign findings Skin: No rash. - Assessment and Plan (1) Left arm pain Current Visit: Yes Status: Acute Assessment and Plan: Severe left arm pain Reviewed MRI of Left shoulder - High grade partial thickness tear of the distal anterior fiber of the supraspinatus tendon Talked to Ortho scheduled for Orthoscope of Left shoulder and possible repair in AM NPO after mid night cont naroctic PRN for now continue symptomatic and supportive care Patient is requiring more frequent pain medication and may need surgery in the morning also she need to stay in the hospital more than 2 midnights due to her complex medical problems . So we will change her to full admission today. I did review my colleague Dr. Aguilar H & P including HPI, PMH, PSH, FH, SH, and ROS no changes noticed (2) Chest pain Current Visit: Yes Status: Acute Assessment and Plan: atypical CP negative troponin No acute EKG changes her CP is due to Left shoulder pain no further work up needed (3) C. difficile diarrhea Current Visit: Yes Status: Acute Assessment and Plan: Patient with C. difficile diarrhea No more diarrhea cont PO Vanc Probiotic Isolation precautions (4) Supratherapeutic INR Current Visit: Yes Status: Acute Assessment and Plan: INR is supratherapeutic due to diarrhea Hold Coumadin until INR and target INR less than 3 since pt is going to for surgery in AM will order 2 U FFP Now repeat PT / INR later tonight and in AM (5) History of DVT (deep vein thrombosis) Current Visit: Yes Status: Acute Assessment and Plan: on Coumadin (6) Thoracic outlet syndrome Current Visit: Yes Status: Acute Assessment and Plan: Patient previously had right-sided brachial artery occlusion and thoracic outlet syndrome for which she was treated with surgery. Currently her pain is on the left side. CT angiogram does not show any new aneurysms in this location. - Time Spent with Patient Total time spent is greater than 50% in coordination of care (as documented) at patient's floor/unit and/or counseling patient: Internal Medicine: Result - Labs CBC & Chem 7: 02/21/18 05:01 02/21/18 05:01 Labs: Short CBC 02/20/18 02/21/18 Range/Units 18:49 05:01 WBC 13.9 H 10.7 (4.3-11.1) K/mcL Hgb 11.8 10.8 L (11.5-15.4) g/dL Hct 36.8 33.2 L (35.3-44.9) % Plt Count 292 266 (140-400) K/mcL Neutrophils # 9.6 H 7.0 (1.6-8.9) K/mcL BMP 02/21/18 05:01 Sodium 135 L Potassium 3.7 Chloride 105 Carbon Dioxide 25 BUN 5 L Creatinine 0.58 L Glucose 109 H Calcium 8.5 L Cardiac Enzymes 02/20/18 Range/Units 18:49 Troponin I < 0.03 (< 0.04) ng/mL - ABG Interpretation ABG results: PT/INR, D-dimer PT 50.8 Seconds (9.4-12.1) H* 02/21/18 05:01 - Impressions Impressions Echocardiogram 12/11/18 11:28 Impressions: LVEF 60-65%. Normal LV chamber size, wall thickness and function. Mild left ventricular diastolic dysfunction. Grossly normal right ventricular structure and function. No evidence of pulmonary hypertension. No significant valvular dysfunction. Left Ventricular Wall Motion: Rest Echo Findings All wall segments showed normal motion. Findings: Study Quality * Technically sub-optimal due to poor echocardiographic windows. ECG Findings * Normal sinus rhythm. Left Ventricle * LVEF 60-65%. * Normal LV chamber size, wall thickness and function. * Mild left ventricular diastolic dysfunction. Right Ventricle * Grossly normal right ventricular structure and function. Left Atrium * Mildly dilated left atrium. Right Atrium * Normal right atrial size. Aortic Valve * Aortic valve not well visualized. * No aortic regurgitation. * No aortic stenosis. Mitral Valve * Normal mitral valve structure and function. * No mitral regurgitation. * No mitral stenosis. Tricuspid Valve * Normal tricuspid valve structure and function. * Trace tricuspid regurgitation. * No evidence of pulmonary hypertension. Pulmonic Valve * Pulmonic valve is not well visualized. * Trace pulmonic regurgitation. Aorta * Normally sized aortic root. Pericardium * The pericardium appears normal. IVC * Normal IVC dimensions and inspiratory collapse. Pulmonary Artery * Normal visualized portions of the main pulmonary artery. Shoulder MRI 02/21/18 22:17 IMPRESSION: High-grade partial-thickness bursal surface tear of the distal anterior fibers of the supraspinatus tendon with full-thickness component. Tear measures 1.3 cm in AP dimension with approximately 8 mm of tendon retraction. Fluid tracking from the glenohumeral joint space into the subacromial subdeltoid bursa. Large amount of fluid in the subacromial subdeltoid bursa suggesting severe subacromial subdeltoid bursitis and fluid from the full-thickness rotator cuff tear. Os acromiale. Moderate AC joint osteoarthritis with mild acromiohumeral impingement. D/ / 02/21/2018 11:15:53 Kaleb Zuleta MD / carlos eduardo Interpreting Provider: Kaleb Zuleta MD Consult Discharge Plan - Plan Referrals: Yaa Pantoja, TYPEWRITER RIBBON WINDER [Primary Care Provider] -
[2018-02-21] MEDS: Ketorolac 15 MG/ML VIAL IVP PRN (19:54)
--- NOTE | 2018-02-21 19:55 | Anesthesia Evaluation PreOp ---
Date of Encounter: 02/21/18 Time of Encounter: 19:53 - Past History Planned Operation: Left Shoulder scope, RCR Cardiac History: Hyperlipidemia, Other (Peripheral Vascular Disease, Lupus Anti coagulant, Thoracic outlet syndrome, multiple vacular procedures) Pulmonary History: Denies Any Significant HX WIND SITE MANAGER History: Denies Any Significant HX Other Medical History: Denies Any Significant HX, GERD, Other (Obese) Anesthesia History: No Prior Anesthetic Complications, Past Anesthesia (Rt Upper Extremity Thrombectomy, Multiple vascular procedures, Removal of Right 1st and second rib) : No Alcohol Use: none Drug use: none Medications and Allergies Aspirin 81 mg PO DAILY #90 tab.chew 12/28/15 [Rx] Cholecalciferol (D-3) [Vitamin D] 5,000 unit PO DAILY 10/26/16 [History] Multivitamin [One Daily Essential] 1 tab PO DAILY 10/26/16 [History] Acetaminophen [Tylenol Arthritis] 2 tab PO BID PRN 02/24/17 [History] Warfarin [Coumadin] 4 mg PO WEBSTER 05/05/17 [History] Ciprofloxacin HCl [Cipro] 1 tab PO BID #10 tablet 02/15/18 [Rx] Lactobacillus Acidophilus [Acidophilus Probiotic] 1 tab PO BID #60 tablet 02/15/18 [Rx] metroNIDAZOLE [Flagyl] 1 tab PO TID #15 tablet 02/15/18 [Rx] Atorvastatin Calcium [Lipitor] 20 mg PO DAILY 02/20/18 [History] Warfarin Sodium 3 mg PO MOTUWETHFRSA 02/20/18 [History] Allergy/AdvReac Type Severity Reaction Status Date / Time codeine Allergy See Verified 02/15/18 11:32 Comments promethazine [From Phenergan] Allergy See Verified 02/15/18 11:32 Comments - Meds/Allergy Pre-op Review Medications Reviewed: Yes Allergies Reviewed: Yes Beta Blockers on Current Med List: No Anesthesia Results - Labs 02/21/18 05:01 02/21/18 05:01 Laboratory Tests 02/20/18 02/21/18 04:25 05:01 PT 50.8 H* INR 4.5 H* APTT 45.0 H Being transfused with 2 units FFP 02/21/2018 - Imaging EKG: report reviewed (SR) Additional studies: Echocardiogram Name: Jillian Constance Mellisbeth Date of Study: 02/20/2018 EV/EV echocardiogram Impressions: LVEF 60-65%. Normal LV chamber size, wall thickness and function. Mild left ventricular diastolic dysfunction. Grossly normal right ventricular structure and function. No evidence of pulmonary hypertension. No significant valvular dysfunction. Stress 03/03/17 EF 67% No ischemia Anesthesia Exam Vital Signs/O2 Sat, Most Current Temp Pulse Resp BP Pulse Ox 98.2 F 99 18 101/68 96 02/21/18 18:30 02/21/18 18:30 02/21/18 18:30 02/21/18 18:30 02/21/18 18:30 - HEENT Pupil (Motor): Pupils equal, EOMI Mallampati: III Teeth: Edentulous Oral Opening: Greater than 3 - WIND SITE MANAGER LOC: Oriented WIND SITE MANAGER Motor: Normal RUE, Normal LUE, Normal RLE, Normal LLE, Normal Face WIND SITE MANAGER Sensory: Normal: RUE, LUE, RLE, LLE, Face - Cardiac Rhythm: Regular Murmur: None JVD: No Carotid Bruit: No - Pulmonary Breath Sounds: bilateral Clear Respiratory Effort: Symmetrical Anesthesia Assess/Plan ASA Score: 3 Level of consciousness: Cooperative Anesthetic Plan: General, Regional Nerve Block Regional Nerve Block Plan: Supraclavicular Autologous Blood: Yes Monitoring Plan: Standard Monitors Recovery Plan: PACU
[2018-02-21] MEDS ORDERED: 0.9 % Sodium Chloride 250 ML ONE (20:01)
[2018-02-22] MEDS ORDERED: 0.9 % Sodium Chloride 250 ML ONE (01:01)
[2018-02-22] MEDS: OXYCODONE Oral CONC 10 MG/0.5 ML ORAL.SYG SL PRN ×2 (01:27→16:39)
[2018-02-22] MEDS: Ketorolac 15 MG/ML VIAL IVP PRN (06:34)
--- NOTE | 2018-02-22 08:24 | Orthopedics Progress Note ---
Date of Encounter: 02/21/18 Time of Encounter: 17:00 - Assessment and Plan (1) Left shoulder pain Current Visit: Yes Status: Acute Qualifiers: Chronicity: acute Qualified Code(s): M25.512 - Pain in left shoulder (2) Left arm pain Current Visit: Yes Status: Acute (3) Unspecified rotator cuff tear or rupture of left shoulder, not specified as traumatic Current Visit: Yes Status: Acute Qualifiers: Rotator cuff tear extent: incomplete Qualified Code(s): M75.112 - Incomplete rotator cuff tear or rupture of left shoulder, not specified as traumatic Subjective Principal diagnosis: left shoulder/arm pain Interval history: Vascular feels not a direct vascular concern at this time. MRI left shoulder reveals rotator cuff tear of supraspinatus, significant deltoid strain, joint effusion - reviewed further with radiologist who feels no involvement of subscap Discussed with Dr. Perez Plan for surgery 02/22/18 Patient with no significant exam changes from 02/20/18 - mild improvement in left hand dexterity and sensation noted. Discussed procedure with patient and spouse at bedside - patient states questions/concerns answered. Reviewed consent. NPO at midnight S/w Dr. Gordillo re: PT/INR levels - plan to address with medication prior to surgery - patient planned for last case of day Objective Vital signs: Vital Signs Temp Pulse Resp BP Pulse Ox 02/22/18 06:32 99 F 84 16 101/69 97 02/22/18 03:54 98.9 F 78 16 103/72 02/22/18 03:39 98.3 F 81 16 104/63 98 02/22/18 00:37 98.7 F 67 18 126/77 97 02/21/18 23:07 98.4 F 89 16 94/57 95 02/21/18 20:37 99.1 F 93 16 115/71 02/21/18 20:22 99.7 F H 93 16 98/61 93 02/21/18 18:30 98.2 F 99 18 101/68 96 02/21/18 14:56 99.4 F 86 15 111/71 98 02/21/18 11:54 98.5 F 86 14 119/82 98 Intake and Output 02/21/18 02/22/18 02/22/18 23:59 07:59 15:59 Intake Total 275 / 275 300 / 300 Output Total 0 / 0 Balance 275 / 275 300 / 300 Intake: Oral 0 / 0 0 / 0 Blood Product 275 / 275 300 / 300 Plasma Unit [id number] 300 / 300 Plasma Unit [id number] 275 / 275 Output: Urine 0 / 0 Other: # Voids 1 1 # Bowel Movements 1 1 - Labs CBC & BMP: 02/21/18 05:01 02/21/18 05:01 Labs: Abnormal lab results Hgb 10.8 g/dL (11.5-15.4) L 02/21/18 05:01 Hct 33.2 % (35.3-44.9) L 02/21/18 05:01 MCH 27.6 pg (28.0-33.3) L 02/21/18 05:01 MPV 9.2 fL (9.4-12.4) L 02/21/18 05:01 Monocytes # 1.5 K/mcL (0.0-1.3) H 02/21/18 05:01 PT 50.8 Seconds (9.4-12.1) H* 02/21/18 05:01 INR 4.5 H* 02/21/18 05:01 APTT 45.0 Seconds (26.0-36.0) H 02/20/18 04:25 Sodium 135 mEq/L (136-145) L 02/21/18 05:01 BUN 5 mg/dL (8-23) L 02/21/18 05:01 Creatinine 0.58 mg/dL (0.60-1.20) L 02/21/18 05:01 Glucose 109 mg/dL (70-105) H 02/21/18 05:01 Calculated Osmolality 278 (280-300) L 02/21/18 05:01 Calcium 8.5 mg/dL (8.6-10.3) L 02/21/18 05:01 Serum Total Protein 5.5 g/dL (6.4-8.9) L 02/20/18 04:25 Albumin 3.4 g/dL (3.5-5.7) L 02/20/18 04:25 Globulin 2.1 g/dL (2.4-3.5) L 02/20/18 04:25 Consult Discharge Plan - Plan Referrals: Yaa Pantoja, SENIOR STORAGE ENGINEER [Primary Care Provider] -
[2018-02-22] MEDS ORDERED: Bupivacaine/EPI 1:200k 0.5%PF 30 ML VIAL ONE (08:26)
[2018-02-22 08:47] LABS: INR 1.8; Prothrombin Time 20.1 Seconds (9.4-12.1)
[2018-02-22] MEDS: Cholecalciferol (D-3) 1,000 UNIT TABLET PO SCH (10:15)
[2018-02-22] MEDS: Lactobacillus 1 EACH CAP.SPRINK PO SCH ×2 (10:15→22:25)
[2018-02-22] MEDS: Vancomycin Oral Soln 125 MG/2.5 ML UDC PO SCH ×3 (10:15→22:25)
[2018-02-22] MEDS: Aspirin 81 MG TAB.CHEW PO SCH ×2 (10:15→10:20)
[2018-02-22] MEDS ORDERED: Propofol 500 MG/50 ML INFUS..BTL ONE (13:29)
[2018-02-22] MEDS ORDERED: Dexamethasone 4 MG/ML VIAL ONE (13:29)
[2018-02-22] MEDS ORDERED: Lidocaine -MPF 2% 2 ML VIAL ONE ×3 (13:29→14:05)
[2018-02-22] MEDS ORDERED: *HR* FentaNYL (PF) 100 MCG/2 ML VIAL ONE (13:29)
[2018-02-22] MEDS ORDERED: *HR* Midazolam HCl 2 MG/2 ML VIAL ONE (13:29)
[2018-02-22] MEDS ORDERED: Ondansetron 4 MG/2 ML VIAL ONE (13:29)
[2018-02-22] MEDS ORDERED: *HR* Succinylcholine 200 MG/10 ML VIAL IVP ONE (13:29)
[2018-02-22] MEDS ORDERED: *HR* Rocuronium Bromide 50 MG/5 ML VIAL ONE (13:29)
[2018-02-22] MEDS ORDERED: Ondansetron 4 MG/2 ML VIAL IVP PRN ×3 (13:45→17:55)
[2018-02-22] MEDS ORDERED: Acetaminophen IV 1,000 MG/100 ML INFUS..BTL ONE (14:59)
[2018-02-22] MEDS ORDERED: *HR* HYDROMORPHONE 2 MG/ML VIAL ONE (15:36)
[2018-02-22] MEDS ORDERED: ceFAZolin 1,000 MG in Water for inj. (sterile) 20 ML 10 ML IVP ONE ×2 (15:46→23:00)
--- NOTE | 2018-02-22 16:02 | Internal Med Progress Note ---
Hospitalist Progress Note - Encounter Date of Encounter: 02/22/18 Time of Encounter: 15:59 - Subjective Interval History: Patient lying comfortably on bed. She is nothing by mouth plan for surgery by orthopedics this afternoon. Review the lab. Patient denies fever chills nausea vomiting headache dizziness chest pain shortness of breath urinary complaint. Had only one episode of losing motion since overnight - Exam Vitals: Temp Pulse Resp BP Pulse Ox 97.6 F 91 16 135/81 94 02/22/18 13:40 02/22/18 13:40 02/22/18 13:40 02/22/18 13:40 02/22/18 13:40 Exam: Gen: Alert, awake, Oriented to time,place and person Chest: Diminished breath sounds B/L, No wheezing, No crackles, Heart: S1S2+ RRR No murmurs Abd: Soft, nontender, nondistended,, BS +, No organomegaly Ext: Significant tenderness in Left shoulder with mild swelling. No erythema. Limited ROM in left shoulder No edema, pulses are palpable, No calf tenderness Neuro : No focal neurological deficit. Skin: No rash. - Assessment and Plan (1) Left arm pain Current Visit: Yes Status: Acute Assessment and Plan: Pain is better controlled. Reviewed MRI of Left shoulder - High grade partial thickness tear of the distal anterior fiber of the supraspinatus tendon Onboard Ortho scheduled for Orthoscope of Left shoulder today. NPO . Continue narcotic as needed for pain management along with supportive management (2) C. difficile diarrhea Current Visit: Yes Status: Acute Assessment and Plan: Patient with C. difficile diarrhea. Improving significantly. Continue by mouth vancomycin and probiotic. Normal white count (3) Supratherapeutic INR Current Visit: Yes Status: Acute Assessment and Plan: On admission INR is supratherapeutic therefore on Hold Coumadin INR 1.8 after giving 2 unit FFP and will continue to monitor INR and resume warfarin after surgery (4) Chest pain Current Visit: Yes Status: Acute Assessment and Plan: atypical CP negative troponin No acute EKG changes her CP is due to Left shoulder pain no further work up needed (5) History of DVT (deep vein thrombosis) Current Visit: Yes Status: Acute Assessment and Plan: on Coumadin (6) Thoracic outlet syndrome Current Visit: Yes Status: Acute Assessment and Plan: Patient previously had right-sided brachial artery occlusion and thoracic outlet syndrome for which she was treated with surgery. CT angiogram does not show any new aneurysms in this location. - Time Spent with Patient Total time spent is greater than 50% in coordination of care (as documented) at patient's floor/unit and/or counseling patient: 25 - 35 minutes Plan of Care Discussed with: patient Internal Medicine: Result - Labs CBC & Chem 7: 02/21/18 05:01 02/21/18 05:01 - ABG Interpretation ABG results: PT/INR, D-dimer PT 20.1 Seconds (9.4-12.1) H D 02/22/18 07:39 - Impressions Impressions Shoulder MRI 02/21/18 22:17 IMPRESSION: High-grade partial-thickness bursal surface tear of the distal anterior fibers of the supraspinatus tendon with full-thickness component. Tear measures 1.3 cm in AP dimension with approximately 8 mm of tendon retraction. Fluid tracking from the glenohumeral joint space into the subacromial subdeltoid bursa. Large amount of fluid in the subacromial subdeltoid bursa suggesting severe subacromial subdeltoid bursitis and fluid from the full-thickness rotator cuff tear. Os acromiale. Moderate AC joint osteoarthritis with mild acromiohumeral impingement. D/ / 02/21/2018 11:15:53 Kaleb Zuleta MD / carlos eduardo Interpreting Provider: Kaleb Zuleta MD Consult Discharge Plan - Plan Referrals: Yaa Pantoja, EDUCATIONAL SPECIALIST [Primary Care Provider] -
[2018-02-22] MEDS ORDERED: Ketorolac 30 MG/ML VIAL ONE (16:24)
--- NOTE | 2018-02-22 17:06 | Orthopedic Operative Note ---
Date of procedure: 02/22/18 Pre-op diagnosis: Left rotator cuff tear labral tear Post-op diagnosis: same Procedure: Procedure: Left shoulder arthroscopy subacromial decompression rotator cuff repair, Estimated blood loss: 20 cc Hardware: 4 4.75 swivel lock suture anchors 2, 2.9 push lock Cartilage surfaces: Glenoid: Normal Humeral Head: Normal Rotator cuff: Subscapularis: Normal Supraspinatus:tear Infraspinatus: Normal Exam Under anesthesia: Full motion no stability Procedural Notes: Patient noted to have a full-thickness rotator cuff tear an anterosuperior labral tear. Operative Dication: The patient was brought to the operating room and placed on the operating room table. After general anesthesia was administered the operative shoulder was examined. The patient was then placed in the modified beachchair position and all pressure points were padded appropriately, and the head was stabilized in the neutral position. The operative extremity was prepped and draped in sterile surgical fashion. The patient received IV antibiotics prior skin incision. A standard posterior portal was established and the arthroscope was introduced into the shoulder without complication. A standard anterior portal was established through the rotator interval utilizing an outside in technique localizing with spinal needle. The outflow cannula was introduced without complication. Diagnostic arthroscopy was performed. The articular surface of the glenoid and the humeral head were evaluated. The anterior labrum, the superior labrum and the biceps tendon were evaluated, patient noted to have an anterosuperior labral tear this was repaired with 2 Arthrex labral tapes passed individually with a crescent lasso and secured with 2 2.9 push lock suture anchor Evaluation of the subscapularis was normal supraspinatus was torn and infraspinatus was normal. The arthroscope was then removed from the shoulder and introduced into the subacromial space. The arthroscopic sheath was passed out the anterior portal and the anterior cannula was introduced into the subacromial space in a retrograde fashion. A standard lateral portal was established utilizing outside in technique. The ArthroCare ablator was introduced through the lateral portal, the CA ligament was released off the anterior undersurface of the acromiom, a preliminary acromioplasty was performed with the prateek through the lateral portal. The arthroscope was then removed from the posterior portal and introduced through the lateral portal. The ArthroCare ablator was introduced through posterior portal and the bursectomy was completed. Evaluation of the rotator cuff showed a rotator cuff tear. Bur was introduced to the posterior portal the acromioplasty was completed utilizing cutting block technique without complication. A superior accessory portal was established. A Cannula was introduced without complication. 2 4.75 Arthrex swivel lock suture anchor was placed in the tuberosity with fiber tape. Suture and tape were passed through the anterior portion of tear with a micro-lasso, the midportion of the tear with a curved lasso and the posterior portion of the tear with a crescent lasso. Suture and tape were then fixed to the lateral tuberosity with 2 4.75 swivel lock suture anchors. This accomplished the speed bridge repair. The repair was found to be secure. The arthroscope was removed from the shoulder and the shoulder was evacuated of fluid. The incisions were closed with interrupted 2-0 nylon suture. The shoulder was infiltrated with half percent Marcaine with epinephrine. The patient was placed in a sterile dressing and neutral wedge. They were extub ated transferred to recovery in stable condition Anesthesia: GETAmada Surgeon: Zhao Perez Was there an public aid eligibility assistant present: No Estimated blood loss (cc): 20 Condition: stable Disposition: PACU
[2018-02-22] MEDS ORDERED: Ringers Solution, Lactated 1,000 ML IVC SCH (17:55)
[2018-02-22] MEDS ORDERED: Temazepam 15 MG CAPSULE PO PRN (17:55)
[2018-02-22] MEDS ORDERED: Ketorolac 15 MG/ML VIAL IVP PRN (17:55)
[2018-02-22] MEDS ORDERED: MOM Conc 10 ML UD.LIQ PO PRN (17:55)
[2018-02-22] MEDS ORDERED: Naloxone 0.4 MG/ML INJ IVP PRN ×2 (17:55)
[2018-02-22] MEDS ORDERED: Sennosides 8.6 MG TABLET PO PRN (17:55)
[2018-02-22] MEDS ORDERED: OXYCODONE Oral CONC 10 MG/0.5 ML ORAL.SYG SL PRN (17:55)
[2018-02-22] MEDS ORDERED: Warfarin perPT PO PRN (18:00)
[2018-02-22] MEDS ORDERED: *HR* Warfarin 3 MG TABLET PO ONE (21:00)
[2018-02-22] MEDS: Acetaminophen 325 MG TABLET PO PRN (22:25)
[2018-02-23] MEDS: OXYCODONE Oral CONC 10 MG/0.5 ML ORAL.SYG SL PRN ×2 (04:06→10:57)
[2018-02-23 05:56] LABS: Hematocrit 33.5 % (35.3-44.9); Hemoglobin 10.7 g/dL (11.5-15.4)
[2018-02-23 06:05] LABS: Prothrombin Time 22.6 Seconds (9.4-12.1)
[2018-02-23 06:14] LABS: BUN/Creatinine Ratio 18 (6-26); Blood Urea Nitrogen 8 mg/dL (8-23); Calcium 8.7 mg/dL (8.6-10.3); Carbon Dioxide 25 mEq/L (23-29); Chloride 107 mEq/L (98-107); Glucose 132 mg/dL (70-105); Osmolality,Calculated 284 (280-300); Potassium 4.1 mEq/L (3.5-5.1); Sodium 137 mEq/L (136-145); eGFR For Non-African Americans > 60 (> 60)
[2018-02-23] MEDS: Aspirin 81 MG TAB.CHEW PO SCH (09:33)
[2018-02-23] MEDS: Ibuprofen 600 MG TABLET PO PRN (09:33)
[2018-02-23] MEDS: Cholecalciferol (D-3) 1,000 UNIT TABLET PO SCH (09:33)
[2018-02-23] MEDS: Lactobacillus 1 EACH CAP.SPRINK PO SCH ×2 (09:33→21:49)
[2018-02-23] MEDS: Vancomycin Oral Soln 125 MG/2.5 ML UDC PO SCH ×4 (09:34→21:52)
--- NOTE | 2018-02-23 09:45 | Orthopedics Progress Note ---
Date of Encounter: 02/23/18 Time of Encounter: 09:44 Subjective Principal diagnosis: left shoulder/arm pain Interval history: Patient was seen this morning doing well without complaints. Afebrile vital signs stable. Operative extremity: Neurovascularly intact Dressing clean dry and intact Calves nontender Assessment and plan: Continue with postoperative care Okay for discharge Objective Vital signs: Vital Signs Temp Pulse Resp BP Pulse Ox 02/23/18 06:45 97.9 F 62 18 135/80 95 02/23/18 03:48 97.7 F 74 20 123/70 98 02/23/18 00:53 97.6 F 67 18 109/68 94 02/22/18 18:43 97.7 F 84 16 114/66 95 02/22/18 18:15 97.4 F L 76 18 107/63 94 02/22/18 17:45 97.4 F L 78 17 116/70 97 02/22/18 17:12 84 16 122/72 98 02/22/18 16:57 75 16 128/79 99 02/22/18 16:47 98.1 F 77 16 128/78 98 02/22/18 16:37 97.9 F 87 16 132/74 98 02/22/18 16:27 87 16 125/69 98 02/22/18 16:17 97.9 F 92 16 102/62 97 02/22/18 13:40 97.6 F 91 16 135/81 94 Intake and Output 02/22/18 02/23/18 02/23/18 23:59 07:59 15:59 Intake Total 0 / 0 640 / 640 360 / 360 Output Total 20 / 20 450 / 450 Balance -20 / -20 190 / 190 360 / 360 Intake: Oral 0 / 0 640 / 640 360 / 360 Output: Urine 0 / 0 450 / 450 Estimated Blood Loss 20 / 20 Other: Meal Breakfast Percent of Meal Consumed 100% # Voids 1 1 Weight 92.9 kg Patient Weight 02/23/18 23:59 Weight 92.9 kg - Labs CBC & BMP: 02/23/18 05:36 02/23/18 05:36 Labs: Abnormal lab results Hgb 10.7 g/dL (11.5-15.4) L 02/23/18 05:36 Hct 33.5 % (35.3-44.9) L 02/23/18 05:36 MCH 27.6 pg (28.0-33.3) L 02/21/18 05:01 MPV 9.2 fL (9.4-12.4) L 02/21/18 05:01 Monocytes # 1.5 K/mcL (0.0-1.3) H 02/21/18 05:01 PT 22.6 Seconds (9.4-12.1) H 02/23/18 05:36 APTT 45.0 Seconds (26.0-36.0) H 02/20/18 04:25 Creatinine 0.45 mg/dL (0.60-1.20) L 02/23/18 05:36 Glucose 132 mg/dL (70-105) H 02/23/18 05:36 Serum Total Protein 5.5 g/dL (6.4-8.9) L 02/20/18 04:25 Albumin 3.4 g/dL (3.5-5.7) L 02/20/18 04:25 Globulin 2.1 g/dL (2.4-3.5) L 02/20/18 04:25 Consult Discharge Plan - Plan Referrals: Yaa Pantoja, PRODUCE WEIGHER [Primary Care Provider] -
--- NOTE | 2018-02-23 10:56 | Event Note ---
Date of Encounter: 02/23/18 Time of Encounter: 08:15 Patient alert and oriented x 3 States preparing for discharge when determined appropriate with hospitalist Admits to some pain about the shoulder. Brace adjusted - patient states pain better controlled with brace adjustment Neurovascularly intact. Educated patient on restrictions: No shoulder motion, Nonweight bearing to the left upper extremity, No lifting greater than 10lbs with right upper extremity Okay to perform gentle elbow and wrist range of motion Encouraged patient to keep outpatient follow up as scheduled.
--- NOTE | 2018-02-23 17:03 | Internal Med Progress Note ---
Hospitalist Progress Note - Encounter Date of Encounter: 02/23/18 Time of Encounter: 16:58 - Subjective Interval History: Patient is sitting on the chair. Complaining of shoulder pain. Oxycodone helping but not lasting and off. Want to try oralNSAIDs. Review of the lab with stable hemoglobin. Patient denies fever chills nausea vomiting headache dizziness chest pain shortness of breath urinary complaint. Had 3 watery stools overnight. - Exam Vitals: Temp Pulse Resp BP Pulse Ox 97.4 F L 75 18 102/68 100 02/23/18 15:21 02/23/18 15:21 02/23/18 15:21 02/23/18 15:21 02/23/18 15:21 Exam: Gen: Alert, awake, Oriented to time,place and person Chest: Diminished breath sounds B/L, No wheezing, No crackles, Heart: S1S2+ RRR No murmurs Abd: Soft, nontender, nondistended,, BS +, No organomegaly Ext: Significant tenderness in Left shoulder with mild swelling. No erythema. Limited ROM in left shoulder No edema, pulses are palpable, No calf tenderness Neuro : No focal neurological deficit. Skin: No rash. - Assessment and Plan (1) Left arm pain Current Visit: Yes Status: Acute Assessment and Plan: Pain is better controlled. Reviewed MRI of Left shoulder - High grade partial thickness tear of the distal anterior fiber of the supraspinatus tendon Status post Left shoulder arthroscopy subacromial decompression rotator cuff repair-postop day 1 Patient is still in a lot of pain therefore will manage his her pain on oral pain medication and plan to discharge home as per PT recommendation. Stop IV ketorolac. Start Percocet 10/25 every 6 hours along with ibuprofen 600 mg every 8 hours. Onboard Ortho Plan for discharge tomorrow if is stable (2) C. difficile diarrhea Current Visit: Yes Status: Acute Assessment and Plan: Patient with C. difficile diarrhea. Improving significantly though is still have watery diarrhea. Continue by mouth vancomycin and probiotic. Normal white count (3) Supratherapeutic INR Current Visit: Yes Status: Acute Assessment and Plan: On admission INR is supratherapeutic therefore on Hold Coumadin INR 1.8 after giving 2 unit FFP . 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 CT angiogram does not show any new aneurysms in this location. - Time Spent with Patient Total time spent is greater than 50% in coordination of care (as documented) at patient's floor/unit and/or counseling patient: 25 - 35 minutes Plan of Care Discussed with: patient Internal Medicine: Result - Labs CBC & Chem 7: 02/23/18 05:36 02/23/18 05:36 Labs: Short CBC 02/23/18 Range/Units 05:36 Hgb 10.7 L (11.5-15.4) g/dL Hct 33.5 L (35.3-44.9) % BMP 02/23/18 05:36 Sodium 137 Potassium 4.1 Chloride 107 Carbon Dioxide 25 BUN 8 Creatinine 0.45 L Glucose 132 H Calcium 8.7 - ABG Interpretation ABG results: PT/INR, D-dimer PT 22.6 Seconds (9.4-12.1) H 02/23/18 05:36 Consult Discharge Plan - Plan Instructions: Rotator Cuff Tear Repair (DC) Referrals: Yaa Pantoja, CARD ROOM MANAGER [Primary Care Provider] - Odilia Olivas, PAC [Physician Cargo Service Agent] - 03/01/18 2:15 pm
[2018-02-23] MEDS ORDERED: *HR* Warfarin 3 MG TABLET PO ONE (18:00)
[2018-02-23] MEDS: *HR* OxyCODONE/APAP 10/325 TABLET PO PRN (18:05)
[2018-02-24] MEDS: *HR* OxyCODONE/APAP 10/325 TABLET PO PRN ×4 (00:31→20:06)
[2018-02-24 05:57] LABS: Hematocrit 35.3 % (35.3-44.9); Hemoglobin 11.3 g/dL (11.5-15.4)
[2018-02-24 06:05] LABS: INR 2.9; Prothrombin Time 32.9 Seconds (9.4-12.1)
[2018-02-24 06:17] LABS: BUN/Creatinine Ratio 17 (6-26); Blood Urea Nitrogen 9 mg/dL (8-23); Calcium 9.1 mg/dL (8.6-10.3); Carbon Dioxide 25 mEq/L (23-29); Chloride 103 mEq/L (98-107); Glucose 97 mg/dL (70-105); Osmolality,Calculated 281 (280-300); Potassium 3.9 mEq/L (3.5-5.1); Sodium 136 mEq/L (136-145); eGFR For Non-African Americans > 60 (> 60)
[2018-02-24] MEDS: Cholecalciferol (D-3) 1,000 UNIT TABLET PO SCH (09:29)
[2018-02-24] MEDS: Lactobacillus 1 EACH CAP.SPRINK PO SCH ×2 (09:29→20:06)
[2018-02-24] MEDS: Aspirin 81 MG TAB.CHEW PO SCH (09:29)
[2018-02-24] MEDS: Vancomycin Oral Soln 125 MG/2.5 ML UDC PO SCH ×4 (09:33→20:07)
--- NOTE | 2018-02-24 11:32 | Orthopedics Progress Note ---
Date of Encounter: 02/24/18 Time of Encounter: 11:32 Subjective Principal diagnosis: left shoulder/arm pain Interval history: Patient was seen this morning doing well without complaints. Afebrile vital signs stable. Operative extremity: Neurovascularly intact Dressing clean dry and intact Calves nontender Assessment and plan: Continue with postoperative care Okay for discharge Objective Vital signs: Vital Signs Temp Pulse Resp BP Pulse Ox 02/24/18 10:54 97.9 F 76 16 127/88 93 02/24/18 07:16 98.5 F 101 17 103/70 93 02/24/18 04:08 97.9 F 69 16 142/78 93 02/23/18 23:11 98.8 F 70 18 130/76 92 02/23/18 19:16 98.9 F 73 16 129/73 91 02/23/18 15:21 97.4 F L 75 18 102/68 100 Intake and Output 02/23/18 02/24/18 02/24/18 23:59 07:59 15:59 Intake Total 200 / 200 110 / 110 Balance 200 / 200 110 / 110 Intake: Oral 200 / 200 110 / 110 Other: Meal Breakfast Percent of Meal Consumed 100% Stool Size Small Stool Consistency loose liquid Stool Characteristics Normal for Patient Stool Color Brown # Voids 1 1 # Bowel Movements 2 Weight 92.9 kg Patient Weight 02/24/18 23:59 Weight 92.9 kg - Labs CBC & BMP: 02/24/18 05:45 02/24/18 05:45 Labs: Abnormal lab results Hgb 11.3 g/dL (11.5-15.4) L 02/24/18 05:45 MCH 27.6 pg (28.0-33.3) L 02/21/18 05:01 MPV 9.2 fL (9.4-12.4) L 02/21/18 05:01 Monocytes # 1.5 K/mcL (0.0-1.3) H 02/21/18 05:01 PT 32.9 Seconds (9.4-12.1) H 02/24/18 05:45 APTT 45.0 Seconds (26.0-36.0) H 02/20/18 04:25 Creatinine 0.52 mg/dL (0.60-1.20) L 02/24/18 05:45 Serum Total Protein 5.5 g/dL (6.4-8.9) L 02/20/18 04:25 Albumin 3.4 g/dL (3.5-5.7) L 02/20/18 04:25 Globulin 2.1 g/dL (2.4-3.5) L 02/20/18 04:25 Consult Discharge Plan - Plan Instructions: Rotator Cuff Tear Repair (DC) Referrals: Yaa Pantoja, PUMP ASSEMBLER [Primary Care Provider] - Odilia Olivas, PAC [Physician Indoor Landscape Architect] - 03/01/18 2:15 pm
[2018-02-24] MEDS ORDERED: GI Cocktail 40 ML EACH PO ONE (13:22)
[2018-02-24] MEDS ORDERED: Pantoprazole 40 MG VIAL IVP SCH (13:30)
--- NOTE | 2018-02-24 18:24 | Internal Med Progress Note ---
Hospitalist Progress Note - Encounter Date of Encounter: 02/24/18 Time of Encounter: 18:21 - Subjective Interval History: Patient is sitting on the chair. Better control of shoulder pain current pain medicine. Patient is still has diarrhea almost 7 overnight and she is concerned about it. Reviewed of the lab with stable hemoglobin. Patient denies fever chills nausea vomiting headache dizziness chest pain shortness of breath urinary complaint. - Exam Vitals: Temp Pulse Resp BP Pulse Ox 97.4 F L 74 15 127/80 94 02/24/18 17:07 02/24/18 17:07 02/24/18 17:07 02/24/18 17:07 02/24/18 17:07 Exam: Gen: Alert, awake, Oriented to time,place and person Chest: Diminished breath sounds B/L, No wheezing, No crackles, Heart: S1S2+ RRR No murmurs Abd: Soft, nontender, nondistended,, BS +, No organomegaly Ext: Significant tenderness in Left shoulder with mild swelling- better. No erythema. Limited ROM in left shoulder No edema, pulses are palpable, No calf tenderness Neuro : No focal neurological deficit. Skin: No rash. - Assessment and Plan (1) Left arm pain Current Visit: Yes Status: Acute Assessment and Plan: Pain is better controlled. Reviewed MRI of Left shoulder - High grade partial thickness tear of the distal anterior fiber of the supraspinatus tendon Status post Left shoulder arthroscopy subacromial decompression rotator cuff repair-postop day 2 plan to discharge home as per PT recommendation. Start Percocet 10/25 every 6 hours along with ibuprofen 600 mg every 8 hours. Onboard Ortho- okay to discharge (2) C. difficile diarrhea Current Visit: Yes Status: Acute Assessment and Plan: Patient with C. difficile diarrhea. Has been symptomatic for more than 45 days even she is on vancomycin. Continue by mouth vancomycin and probiotic. Consulted GI specialist and talked on phone and he advised to give Imodium trial maximum 2-3 dose(aware the risk for toxic megacolon) and if it does not help then he will see patient for possible colonoscopy on Monday. Pt had labs positive for C. Diff on 02/15 -of note, she was recently on antibiotics for a sinus infection -was on cipro + flagyl for outpatient therapy (3) Supratherapeutic INR Current Visit: Yes Status: Acute Assessment and Plan: On admission INR is supratherapeutic . 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 CT angiogram does not show any new aneurysms in this location. - Time Spent with Patient Total time spent is greater than 50% in coordination of care (as documented) at patient's floor/unit and/or counseling patient: Internal Medicine: Result - Labs CBC & Chem 7: 02/24/18 05:45 02/24/18 05:45 Labs: Short CBC 02/24/18 Range/Units 05:45 Hgb 11.3 L (11.5-15.4) g/dL Hct 35.3 (35.3-44.9) % BMP 02/24/18 05:45 Sodium 136 Potassium 3.9 Chloride 103 Carbon Dioxide 25 BUN 9 Creatinine 0.52 L Glucose 97 Calcium 9.1 - ABG Interpretation ABG results: PT/INR, D-dimer PT 32.9 Seconds (9.4-12.1) H 02/24/18 05:45 Consult Discharge Plan - Plan Instructions: Rotator Cuff Tear Repair (DC) Referrals: Yaa Pantoja, TOLL TICKET CLERK [Primary Care Provider] - Odilia Olivas, PAC [Physician Tiller Worker] - 03/01/18 2:15 pm
[2018-02-25 03:40] LABS: Basophils % 0.4 %; Eosinophils # 0.4 K/mcL (0.0-0.6); Eosinophils % 6.4 %; Hematocrit 35.9 % (35.3-44.9); Hemoglobin 11.1 g/dL (11.5-15.4); Immature Granulocytes % 0.1 % (0-4); Lymphocytes # 2.4 K/mcL (0.6-4.6); Lymphocytes % 34.3 %; Mean Corpuscular HGB Conc 30.9 g/dL (31.6-35.5); Mean Corpuscular Hemoglobin 27.1 pg (28.0-33.3); Mean Corpuscular Volume 87.6 fL (83.0-100.0); Mean Platelet Volume 9.1 fL (9.4-12.4); Monocytes # 0.9 K/mcL (0.0-1.3); Monocytes % 12.9 %; Neutrophils # 3.2 K/mcL (1.6-8.9); Platelet Count 348 K/mcL (140-400); Segmented Neutrophils % 45.9 %
[2018-02-25] MEDS: *HR* OxyCODONE/APAP 10/325 TABLET PO PRN ×3 (03:44→20:23)
[2018-02-25 03:47] LABS: INR 2.6
[2018-02-25 04:02] LABS: BUN/Creatinine Ratio 14 (6-26); Blood Urea Nitrogen 7 mg/dL (8-23); Calcium 8.7 mg/dL (8.6-10.3); Carbon Dioxide 28 mEq/L (23-29); Chloride 106 mEq/L (98-107); Glucose 96 mg/dL (70-105); Osmolality,Calculated 288 (280-300); Sodium 140 mEq/L (136-145); eGFR For Non-African Americans > 60 (> 60)
[2018-02-25] MEDS: Vancomycin Oral Soln 125 MG/2.5 ML UDC PO SCH ×4 (09:06→20:24)
[2018-02-25] MEDS: Aspirin 81 MG TAB.CHEW PO SCH (09:06)
[2018-02-25] MEDS: Cholecalciferol (D-3) 1,000 UNIT TABLET PO SCH (09:06)
[2018-02-25] MEDS: Lactobacillus 1 EACH CAP.SPRINK PO SCH ×2 (09:06→20:23)
--- NOTE | 2018-02-25 10:02 | Orthopedics Progress Note ---
Date of Encounter: 02/25/18 Time of Encounter: 10:02 Subjective Principal diagnosis: left shoulder/arm pain Interval history: Patient was seen this morning doing well without complaints. Afebrile vital signs stable. Operative extremity: Neurovascularly intact Dressing clean dry and intact Calves nontender Assessment and plan: Continue with postoperative care Being treated for C.diff Okay for discharge Objective Vital signs: Vital Signs Temp Pulse Resp BP Pulse Ox 02/25/18 08:00 96 02/25/18 06:47 98.3 F 68 18 151/86 96 02/25/18 03:43 98.0 F 71 20 154/85 95 02/24/18 23:05 97.7 F 76 20 126/75 95 02/24/18 19:59 97.9 F 80 18 151/77 93 02/24/18 17:07 97.4 F L 74 15 127/80 94 02/24/18 10:54 97.9 F 76 16 127/88 93 Intake and Output 02/24/18 02/25/18 02/25/18 23:59 07:59 15:59 Intake Total 100 / 100 0 / 0 200 / 200 Output Total 0 / 0 Balance 100 / 100 0 / 0 200 / 200 Intake: Oral 100 / 100 0 / 0 200 / 200 Output: Urine 0 / 0 Other: Stool Size Smear Moderate Small Stool Consistency soft soft loose formed formed Stool Color Brown Brown Brown # Voids 2 1 1 # Bowel Movements 1 1 2 Weight 92.5 kg Patient Weight 02/25/18 23:59 Weight 92.5 kg - Labs CBC & BMP: 02/25/18 03:21 02/25/18 03:21 Labs: Abnormal lab results Hgb 11.1 g/dL (11.5-15.4) L 02/25/18 03:21 MCH 27.1 pg (28.0-33.3) L 02/25/18 03:21 MCHC 30.9 g/dL (31.6-35.5) L 02/25/18 03:21 MPV 9.1 fL (9.4-12.4) L 02/25/18 03:21 PT 29.0 Seconds (9.4-12.1) H 02/25/18 03:21 APTT 45.0 Seconds (26.0-36.0) H 12/11/18 04:25 BUN 7 mg/dL (8-23) L 02/25/18 03:21 Creatinine 0.49 mg/dL (0.60-1.20) L 02/25/18 03:21 Serum Total Protein 5.5 g/dL (6.4-8.9) L 02/20/18 04:25 Albumin 3.4 g/dL (3.5-5.7) L 02/20/18 04:25 Globulin 2.1 g/dL (2.4-3.5) L 02/20/18 04:25 Consult Discharge Plan - Plan Instructions: Rotator Cuff Tear Repair (DC) Referrals: Yaa Pantoja, SPUD SORTER [Primary Care Provider] - Odilia Olivas, PAC [Physician Software Application Tester] - 03/01/18 2:15 pm
--- NOTE | 2018-02-25 13:51 | Internal Med Progress Note ---
Hospitalist Progress Note - Encounter Date of Encounter: 02/25/18 Time of Encounter: 13:49 - Subjective Interval History: Patient is sitting on the chair. Better control of shoulder pain current pain medicine. Patient is still has diarrhea almost 6 since last night and Imodium did not help much. Nausea better. Reviewed of the lab with stable hemoglobin. Patient denies fever chills vomiting headache dizziness chest pain shortness of breath urinary complaint. - Exam Vitals: Temp Pulse Resp BP Pulse Ox 98.5 F 64 16 143/78 95 02/25/18 09:53 02/25/18 09:53 02/25/18 09:53 02/25/18 09:53 02/25/18 09:53 Exam: Gen: Alert, awake, Oriented to time,place and person Chest: Diminished breath sounds B/L, No wheezing, No crackles, Heart: S1S2+ RRR No murmurs Abd: Soft, nontender, nondistended,, BS +, No organomegaly Ext: tenderness in Left shoulder with mild swelling- better. No erythema. Limited ROM in left shoulder No edema, pulses are palpable, No calf tenderness Neuro : No focal neurological deficit. Skin: No rash. - Assessment and Plan (1) C. difficile diarrhea Current Visit: Yes Status: Acute Assessment and Plan: Patient with C. difficile diarrhea. Has been symptomatic for more than 45 days even she is on vancomycin. Continue by mouth vancomycin and probiotic. Consulted GI specialist . Failed trial. Will keep patient on clear liquid tomorrow morning and GI specialist will decide about further management versus endoscopy. Talk to GI specialist on phone and also updated patient. Pt had labs positive for C. Diff on 02/15 -of note, she was recently on antibiotics for a sinus infection -was on cipro + flagyl for outpatient therapy (2) Left arm pain Current Visit: Yes Status: Acute Assessment and Plan: Pain is better controlled. Reviewed MRI of Left shoulder - High grade partial thickness tear of the distal anterior fiber of the supraspinatus tendon Status post Left shoulder arthroscopy subacromial decompression rotator cuff repair-postop day 2 plan to discharge home as per PT recommendation. Start Percocet 10/25 every 6 hours along with ibuprofen 600 mg every 8 hours when necessary. Onboard Ortho- okay to discharge (3) Supratherapeutic INR Current Visit: Yes Status: Acute Assessment and Plan: On admission INR is supratherapeutic . 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 CT angiogram does not show any new aneurysms in this location. - Time Spent with Patient Total time spent is greater than 50% in coordination of care (as documented) at patient's floor/unit and/or counseling patient: less than 15 minutes Plan of Care Discussed with: patient Internal Medicine: Result - Labs CBC & Chem 7: 02/25/18 03:21 02/25/18 03:21 Labs: Short CBC 02/25/18 Range/Units 03:21 WBC 6.9 (4.3-11.1) K/mcL Hgb 11.1 L (11.5-15.4) g/dL Hct 35.9 (35.3-44.9) % Plt Count 348 (140-400) K/mcL Neutrophils # 3.2 (1.6-8.9) K/mcL BMP 02/25/18 03:21 Sodium 140 Potassium 4.0 Chloride 106 Carbon Dioxide 28 BUN 7 L Creatinine 0.49 L Glucose 96 Calcium 8.7 - ABG Interpretation ABG results: PT/INR, D-dimer PT 29.0 Seconds (9.4-12.1) H 02/25/18 03:21 Consult Discharge Plan - Plan Instructions: Rotator Cuff Tear Repair (DC) Referrals: Yaa Pantoja, QUALITY ASSURANCE SUPERVISOR [Primary Care Provider] - Odilia Olivas, PAC [Physician Boiling House Hand] - 03/01/18 2:15 pm
[2018-02-25] MEDS: Acetaminophen 325 MG TABLET PO PRN (17:32)
[2018-02-25] MEDS ORDERED: *HR* Warfarin 3 MG TABLET PO ONE (18:00)
[2018-02-26] MEDS: *HR* OxyCODONE/APAP 10/325 TABLET PO PRN ×2 (04:26→18:35)
[2018-02-26 05:39] LABS: INR 2.1; Prothrombin Time 23.8 Seconds (9.4-12.1)
[2018-02-26] MEDS: Cholecalciferol (D-3) 1,000 UNIT TABLET PO SCH (08:48)
[2018-02-26] MEDS: Lactobacillus 1 EACH CAP.SPRINK PO SCH ×2 (08:48→20:08)
[2018-02-26] MEDS: Aspirin 81 MG TAB.CHEW PO SCH (08:48)
[2018-02-26] MEDS: Vancomycin Oral Soln 125 MG/2.5 ML UDC PO SCH ×3 (08:49→20:08)
--- NOTE | 2018-02-26 09:28 | Gastroenterology Consult Note ---
Date of Encounter: 02/26/18 Time of Encounter: 09:50 - Assessment and plan (1) C. difficile diarrhea Current Visit: Yes Status: Acute Assessment and plan: C. difficile colitis, difficult to treat Patient had positive C. difficile toxin on 02/15/18 Continues to have liquid bowel movements daily despite outpatient Cipro and Flagyl Started on by mouth vancomycin on 02/20/18, day 7 Plan We will increase dose of oral vancomycin to 250 mg by mouth 4 times a day Continue lactobacillus Add cholestyramine 4 g twice a day Consider colonoscopy for fecal transplant if resistant to treatment (2) Left shoulder pain Current Visit: Yes Status: Acute Assessment and plan: Management per primary team and Ortho Qualifiers: Chronicity: acute Qualified Code(s): M25.512 - Pain in left shoulder - Time Spent With Patient Total time spent is greater than 50% in coordination of care (as documented) at patient's floor/unit and/or counseling patient: GI History of Present Illness - Data of Consult Patient: new to practice Consult date: 02/24/18 Requesting Physician: America Price MD - Consult Narrative Reason for consult: Persistent C. Diff History of present illness: Ms. Fine is a 67 year old female with history of thoracic outlet syndrome, right arm thrombo embolic disease, current C. difficile infection diagnosed 02/15/18 who presented to the emergency room for concern of left-sided chest pain/shoulder pain. She does have history of clots in her right upper extremity and she was concerned that maybe there was clots in her left upper extremity forming as well. Only extensive workup, it was found that the patient did have a tear in her rotator cuff which was repaired by orthopedic surgery, however it was noted on admission that the patient does have significant infection with C. difficile colitis and has continued to have nonbloody watery diarrhea for the course of her stay. The patient states this started approximately 50 days ago, and it started after courses by mouth antibiotics that she was taking for a sinus infection as an outpatient. She said that she initially started taking some leftover Flagyl that she had from a orthopedic procedure, and then she visited her primary care provider who gave her another course of antibiotics for the sinus infection. Following that, about 2 weeks later she started having this watery diarrhea which is primarily odorless but did contain some formed material in it occasionally. In addition that she does described as mucousy. She said that nothing seems to help with this, and it is occurring 8-10 times per day. She was started on oral antibiotics for C. difficile colitis on 02/15/18 but she says that these medications have not helped overall. She denies abdominal pains, fevers, chills, sweats. GI was consulted for management of this difficult to control C. difficile colitis diarrhea. It was initially recommended the patient received several doses of Imodium, however this apparently was not helpful for the patient. She continues to have decreased bowel movements. She says that they are often an insignificant amount of diarrhea, however it is very distracting to her life is transitioned to by mouth vancomycin during this hospital stay. Colonoscopy: 09/23/2016 EGD: 09/23/2016 Past Med Surg Social Fam HX - Past Medical History Medical history: DVT, GERD, other Additional medical history: right arm severe blood clots, vitamin D deficiency, hernia that needs surgery, fibroid tumor, varicose veins Psychiatric history: no psych history - Past Surgical History Surgical History: hysterectomy, other Additional surgical history: emergent right brachial artery thromboembolectomy, colonoscopy - Social History Smoking Status: Never smoker Smokeless Tobacco Status: No Alcohol use: none Drug use: none - Family History Mother Cause of : Leukemia Hx Family Cardiac Disorders: No Hx Family Cancer: Yes Hx Family Medical Disorders: Yes (Brother and sister: Hx of Anuerysms) Father Cause of : Colon Cancer Hx Family Cardiac Disorders: No Review of Systems: Constitutional: Denies fevers, chills, weight loss, generalized fatigue Head/Neck: Denies MATUTE, neck stiffness EENT: Denies vision changes/blurriness, rhinorrhea, congestion, sore throat CVS: Denies chest pain, palpitations, FONTAINE, orthopnea, edema, PND Pulm: Denies SOB, cough, sputum, hemoptysis, wheezing GI: Admits to diarrhea, mucus in her stool. Denies abdominal pain, h ematochezia, melena. : Denies dysuria, increased frequency, urgency, hematuria Heme: Denies ease of bleeding or bruising MSK: Admits to muscle and joint pain related to her shoulder surgery Skin: Denies rashes, ulcers, color changes Neuro: Denies MATUTE, paresthesias, focal deficits, ataxia - Constitutional Vitals: Temp Pulse Resp BP Pulse Ox 97.9 F 76 18 133/70 94 02/26/18 06:36 02/26/18 06:36 02/26/18 06:36 02/26/18 06:36 02/26/18 06:36 Exam: Gen: Vitals noted. No acute distress. Eyes: anicteric sclerae, moist conjunctivae; no lid-lag; Pupils equal and reactive to light HENT: Atraumatic; oropharynx clear with moist mucous membranes and no mucosal ulcerations; normal hard and soft palate Neck: Trachea midline; supple, no thyromegaly or lymphadenopathy Cardiac: RRR, no murmur, +S1/S2 Pulmonary: CTA bilaterally, no wheezes, rales or rhonchi, equal chest expansion Abdomen: soft, nontender, no guarding. No masses or hepatosplenomegaly MSK: ROM intact, no joint swelling noted Extremities: no BLE edema, nontender calf, no cyanosis or clubbing Skin: Normal temperature, turgor and texture; no rash, ulcers or subcutaneous nodules Neuro: moves all extremities, no focal deficits. Psych: Appropriate mood and behavior. A&Ox3 Results - Labs CBC & Chem 7: 02/25/18 03:21 02/25/18 03:21 Labs: Last Result Calcium 8.7 mg/dL (8.6-10.3) 02/25/18 03:21 Troponin I < 0.03 ng/mL (< 0.04) 02/20/18 18:49 Entire Visit Hgb 11.1 g/dL (11.5-15.4) L 02/25/18 03:21 Hct 35.9 % (35.3-44.9) 02/25/18 03:21 PT 23.8 Seconds (9.4-12.1) H 02/26/18 05:16 Total Bilirubin 0.3 mg/dL (0.3-1.0) 02/20/18 04:25 AST 23 Units/L (13-39) 02/20/18 04:25 ALT 20 Units/L (7-52) 02/20/18 04:25 - ABG ABG results: PT/INR, D-dimer PT 23.8 Seconds (9.4-12.1) H 02/26/18 05:16 Consult Discharge Plan - Plan Instructions: Rotator Cuff Tear Repair (DC) Referrals: Yaa Pantoja, WAREHOUSE INCENTIVE SELECTOR [Primary Care Provider] - Odilia Olivas, PAC [Physician Mate Ship] - 03/01/18 2:15 pm
[2018-02-26] MEDS ORDERED: Warfarin perPT PO PRN (13:00)
--- NOTE | 2018-02-26 16:08 | Internal Med Progress Note ---
Hospitalist Progress Note - Encounter Date of Encounter: 02/26/18 Time of Encounter: 16:06 - Subjective Interval History: Patient is sitting on the chair. Better control of shoulder pain current pain medicine. Patient is still has diarrhea almost 6-7 since last night Nausea better. Reviewed of the lab with stable hemoglobin. Patient denies fever chills vomiting headache dizziness chest pain shortness of breath urinary complaint. - Exam Vitals: Temp Pulse Resp BP Pulse Ox 98.3 F 92 18 180/67 94 02/26/18 15:28 02/26/18 15:28 02/26/18 15:28 02/26/18 15:28 02/26/18 15:28 Exam: Gen: Alert, awake, Oriented to time,place and person Chest: Diminished breath sounds B/L, No wheezing, No crackles, Heart: S1S2+ RRR No murmurs Abd: Soft, nontender, nondistended,, BS +, No organomegaly Ext: tenderness in Left shoulder with mild swelling- better. No erythema. Limited ROM in left shoulder No edema, pulses are palpable, No calf tenderness Neuro : No focal neurological deficit. Skin: No rash. - Assessment and Plan (1) C. difficile diarrhea Current Visit: Yes Status: Acute Assessment and Plan: Patient with C. difficile diarrhea. Has been symptomatic for more than 45 days even she is on vancomycin. Continue by mouth vancomycin and probiotic. Consulted GI specialist . Failed trial. GI specialist seen the patient and increase the dose of vancomycin 250 mg 4 times a day along with cholestyremmine and if patient does not improve then consider colonoscopy with fecal stool transplant. Plan to discharge patient once cleared by GI specialist Pt had labs positive for C. Diff on 02/15 -of note, she was recently on antibiotics for a sinus infection -was on cipro + flagyl for outpatient therapy (2) Left arm pain Current Visit: Yes Status: Acute Assessment and Plan: Pain is better controlled. Reviewed MRI of Left shoulder - High grade partial thickness tear of the distal anterior fiber of the supraspinatus tendon Status post Left shoulder arthroscopy subacromial decompression rotator cuff repair-postop day 2 plan to discharge home as per PT recommendation. Start Percocet 10/25 every 6 hours along with ibuprofen 600 mg every 8 hours when necessary. Onboard Ortho- okay to discharge from [facility] (3) Supratherapeutic INR Current Visit: Yes Status: Acute Assessment and Plan: On admission INR is supratherapeutic . 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 CT angiogram does not show any new aneurysms in this location. - Time Spent with Patient Total time spent is greater than 50% in coordination of care (as documented) at patient's floor/unit and/or counseling patient: 25 - 35 minutes Plan of Care Discussed with: help desk consultant Internal Medicine: Result - Labs CBC & Chem 7: 02/25/18 03:21 02/25/18 03:21 - ABG Interpretation ABG results: PT/INR, D-dimer PT 23.8 Seconds (9.4-12.1) H 02/26/18 05:16 Consult Discharge Plan - Plan Instructions: Rotator Cuff Tear Repair (DC) Referrals: Yaa Pantoja, BANK GUARD [Primary Care Provider] - Odilia Olivas, PAC [Physician Ore Grader] - 03/01/18 2:15 pm
[2018-02-26] MEDS ORDERED: Cholestyramine 4 GM POWD.PACK PO SCH (16:30)
[2018-02-26] MEDS ORDERED: *HR* Warfarin 3 MG TABLET PO ONE (18:00)
[2018-02-27] MEDS: *HR* OxyCODONE/APAP 10/325 TABLET PO PRN ×3 (04:34→22:13)
[2018-02-27 06:44] LABS: INR 2.5; Prothrombin Time 27.8 Seconds (9.4-12.1)
[2018-02-27] MEDS: Lactobacillus 1 EACH CAP.SPRINK PO SCH ×2 (08:13→21:31)
[2018-02-27] MEDS: Vancomycin Oral Soln 125 MG/2.5 ML UDC PO SCH ×4 (08:13→21:32)
[2018-02-27] MEDS: Cholecalciferol (D-3) 1,000 UNIT TABLET PO SCH (08:13)
[2018-02-27] MEDS: Aspirin 81 MG TAB.CHEW PO SCH (08:13)
--- NOTE | 2018-02-27 09:31 | Internal Med Progress Note ---
Hospitalist Progress Note - Encounter Date of Encounter: 02/27/18 Time of Encounter: 09:30 - Exam Vitals: Temp Pulse Resp BP Pulse Ox 97.8 F 79 15 139/82 96 02/27/18 06:41 02/27/18 06:41 02/27/18 06:41 02/27/18 06:41 02/27/18 06:41 Exam: Gen: Alert, awake, Oriented to time,place and person Chest: Diminished breath sounds B/L, No wheezing, No crackles, Heart: S1S2+ RRR No murmurs Abd: Soft, nontender, nondistended,, BS +, No organomegaly Ext: tenderness in Left shoulder with mild swelling- better. No erythema. Limited ROM in left shoulder No edema, pulses are palpable, No calf tenderness Neuro : No focal neurological deficit. Skin: No rash. - Assessment and Plan (1) C. difficile diarrhea Current Visit: Yes Status: Acute Assessment and Plan: Patient has acute C. difficile infection. Complained of having had diarrhea for about 45 days and went to her PCP where she was treated with cipro and flagyl with no resolution Was started on 250mg po QID po vancomycin by Gi and cholestyramine. Reports significant improvement in diarrhea. ID recs appreciated. Plan for discharge on 10 day course of po vancomycin if patient continues to improve. Fecal transplant will likely not be indicated based on clinical assessment (2) Left arm pain Current Visit: Yes Status: Acute Assessment and Plan: Pain is better controlled. Reviewed MRI of Left shoulder - High grade partial thickness tear of the distal anterior fiber of the supraspinatus tendon Status post Left shoulder arthroscopy subacromial decompression rotator cuff repair- plan to discharge home as per PT recommendation. Start Percocet 10/25 every 6 hours along with ibuprofen 600 mg every 8 hours when necessary. [facility] Supratherapeutic INR Current Visit: Yes Status: Acute Assessment and Plan: On admission INR is supratherapeutic . 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 CT angiogram does not show any new aneurysms in this location. - Time Spent with Patient Total time spent is greater than 50% in coordination of care (as documented) at patient's floor/unit and/or counseling patient: Internal Medicine: Result - Labs CBC & Chem 7: 02/25/18 03:21 02/25/18 03:21 - ABG Interpretation ABG results: PT/INR, D-dimer PT 27.8 Seconds (9.4-12.1) H 02/27/18 05:30 Consult Discharge Plan - Plan Instructions: Rotator Cuff Tear Repair (DC) Referrals: Yaa Pantoja, CHEMISTRY RESEARCH ASSISTANT [Primary Care Provider] - Odilia Olivas, PAC [Physician Bottom Turning Lathe Tender] - 03/01/18 2:15 pm
--- NOTE | 2018-02-27 13:48 | Infectious Disease Consult ---
Date of Encounter: 02/27/18 Time of Encounter: 13:27 Assessment and Plan (1) Abdominal pain Status: Acute Assessment and plan: Resolved Secondary to C. difficile colitis Qualifiers: Abdominal location: epigastric Qualified Code(s): R10.13 - Epigastric pain (2) C. difficile diarrhea Status: Acute Assessment and plan: Symptoms started about 60 days ago Patient was on IV antibiotics in April and had a Z-Dominguez back in November C. difficile was positive 02/15/2018 as outpatient; was treated with Flagyl 500 mg by mouth 3 times a day. Symptoms persisted, switched to oral vancomycin her on admission Clinically improved No signs of toxic megacolon, fulminant C. difficile or severe C. difficile colitis Appreciate GI recommendations Continue vancomycin orally 125 mg by mouth 3 times a day to finish a 14 day course Give probiotics Advance diet if okay with GI Monitor labs and for dehydration (3) Left arm pain Status: Acute (4) Supratherapeutic INR Status: Acute (5) History of DVT (deep vein thrombosis) Status: Acute (6) Thoracic outlet syndrome Status: Acute Infectious Disease HPI - Data of Consult Patient: new to practice Consult date: 02/27/18 Requesting Physician: Rafi Aguilar MD Primary Care Provider: Yaa Pantoja CNP - Consult Narrative Reason for consult: "Resistant C. difficile" History of present illness: Ms. Fine is a 67 year old female Patient is a 67-year-old woman who presented to [place] on 02/20/2018 with left arm pain. 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 Pain was located in the right upper shoulder and left clavicular region that radiates down her arm. No associated alleviating or aggravating factors. On further questioning, patient apparently was seen by her oncologist on 02/15/2018. At that time apparently patient was having 6-8 daily dark stools that per record states that there have been present for a good 45 days. Patient has C. difficile checked and patient was started on ciprofloxacin and metronidazole. Patient was then called by her quartz miner and told her to stop the Cipro and discontinue the Flagyl and increase it to 14 days. Patient also tells me that she had necrotic fingers VAC in April and she was on IV antibiotics for quite some time at [facility]. She also mentions that recently she had URI symptoms and was given a Z-Dominguez. Patient tells me she has had this diarrhea for 16 days approximately but she has never mentioned it to any physicians. Since admission, patient has been afebrile, no tachycardia but no tachypnea. Presenting labs revealed a WBC of 16.5 with 73% neutrophils no bands. INR is 5.5. Normal BM and creatinine. Initial imaging revealed a suboptimal opacific ation of the pulmonary arteries degraded evaluation for pulmonary thrombolic disease. No evidence of central pulmonary embolic disease. CTA of the neck without acute arterial abnormalities. Congenitally hypoplastic left vertebral artery. Venous duplex of the upper extremity on the left reveals normal superficial and deep exam. CT abdomen and pelvis revealed multiple hypoattenuating lesions throughout the liver with circumscribed contusion and hypoattenuation. Largest of these lesions are seen in the inferior aspect of the right hepatic lobe measuring up to 6.7 cm in greatest dimension. The lesion size is increased slightly compared to previous study in 2015. There is also calcified gallstone layering within the gallbladder and hearing the gallbladder neck which measures approximately 3 mm. No evidence of acute pancreatitis. Spleen is not enlarged. Patient did continue on oral vancomycin since recently the patient was diagnosed with C. difficile colitis on 02/15/2018. Currently patient tells me that she feels better. She only had 2 semi-formed bowel movements today. She is only on clear liquid diet. Denies any nausea or vomiting. No abdominal distention. There is some tenderness on physical exam bilateral lower quadrants in the abdomen. Does not appear toxic. CC: Rafi Aguilar MD Past Med Surg Social Fam HX - Past Medical History Medical history: DVT, GERD, other Additional medical history: right arm severe blood clots, vitamin D deficiency, hernia that needs surgery, fibroid tumor, varicose veins Psychiatric history: no psych history - Past Surgical History Surgical History: hysterectomy, other Additional surgical history: emergent right brachial artery thromboembolectomy, colonoscopy - Social History Smoking Status: Never smoker Smokeless Tobacco Status: No Alcohol use: none Drug use: none - Family History Mother Cause of : Leukemia Hx Family Cardiac Disorders: No Hx Family Cancer: Yes Hx Family Medical Disorders: Yes (Brother and sister: Hx of Shelley) Father Cause of : Colon Cancer Hx Family Cardiac Disorders: No Infectious Disease-CN:Meds Aspirin 81 mg PO DAILY #90 tab.chew 12/28/15 [Rx] Cholecalciferol (D-3) [Vitamin D] 5,000 unit PO DAILY 10/26/16 [History] Multivitamin [One Daily Essential] 1 tab PO DAILY 10/26/16 [History] Acetaminophen [Tylenol Arthritis] 2 tab PO BID PRN 02/24/17 [History] Warfarin [Coumadin] 4 mg PO WEBSTER 05/05/17 [History] Ciprofloxacin HCl [Cipro] 1 tab PO BID #10 tablet 02/15/18 [Rx] Lactobacillus Acidophilus [Acidophilus Probiotic] 1 tab PO BID #60 tablet 02/15/18 [Rx] metroNIDAZOLE [Flagyl] 1 tab PO TID #15 tablet 02/15/18 [Rx] Atorvastatin Calcium [Lipitor] 20 mg PO DAILY 02/20/18 [History] Warfarin Sodium 3 mg PO MOTUWETHFRSA 02/20/18 [History] Allergy/AdvReac Type Severity Reaction Status Date / Time codeine Allergy See Verified 02/15/18 11:32 Comments promethazine [From Phenergan] Allergy See Verified 02/15/18 11:32 Comments Review of systems: 10 point ROS done, negative other for what's mentioned in HPI Exam - Constitutional Vitals: Temp Pulse Resp BP Pulse Ox 98.3 F 76 17 148/81 97 02/27/18 11:44 02/27/18 11:44 02/27/18 11:44 02/27/18 11:44 02/27/18 11:44 General appearance: cooperative, no acute distress, no febrile - Head Head exam: Present: atraumatic, normocephalic - Eye Eye exam: Present: PERRL, sclera anicteric - ENT ENT exam: Present: mucous membranes dry, normal exam - Neck Neck exam: Present: full ROM. Absent: meningismus - Respiratory Respiratory exam: Present: CTAB. Absent: wheezes - Cardiovascular Cardiovascular exam: Present: rubs, +S1, +S2 - GI/Abdominal GI/Abdominal exam: Present: soft, tenderness. Absent: distended, firm, guarding Additional comments: Very mild tenderness lower quadrants on deep palpation - Extremities Exam Extremities exam: Present: full ROM. Absent: joint swelling - Neurological Exam Neurological exam: Present: alert, oriented X3 - Psychiatric Psychiatric exam: Present: normal affect, normal mood - Skin Skin exam: Present: normal color. Absent: rash Infectious Disease CN: Results - Labs CBC & Chem 7: 02/25/18 03:21 02/25/18 03:21 Consult Discharge Plan - Plan Instructions: Rotator Cuff Tear Repair (DC) Referrals: Yaa Pantoja, IT TECHNICAL ARCHITECT [Primary Care Provider] - Odilia Olivas, PAC [Physician Weld Inspector] - 03/01/18 2:15 pm
[2018-02-27] MEDS: Cholestyramine 4 GM POWD.PACK PO SCH (16:23)
[2018-02-27] MEDS ORDERED: *HR* Warfarin 3 MG TABLET PO ONE (18:00)
[2018-02-28] MEDS: *HR* OxyCODONE/APAP 10/325 TABLET PO PRN ×3 (04:36→22:59)
[2018-02-28] MEDS: Cholestyramine 4 GM POWD.PACK PO SCH ×2 (05:43→19:56)
[2018-02-28 07:25] LABS: Prothrombin Time 34.4 Seconds (9.4-12.1)
[2018-02-28] MEDS: Aspirin 81 MG TAB.CHEW PO SCH (10:27)
[2018-02-28] MEDS: Cholecalciferol (D-3) 1,000 UNIT TABLET PO SCH (10:28)
[2018-02-28] MEDS: Lactobacillus 1 EACH CAP.SPRINK PO SCH ×2 (10:30→22:59)
[2018-02-28] MEDS: Vancomycin Oral Soln 125 MG/2.5 ML UDC PO SCH ×4 (10:30→22:59)
--- NOTE | 2018-02-28 10:56 | Internal Med Progress Note ---
Hospitalist Progress Note - Encounter Date of Encounter: 02/28/18 Time of Encounter: 10:50 - Exam Vitals: Temp Pulse Resp BP Pulse Ox 98.1 F 93 16 139/76 95 02/28/18 10:00 02/28/18 10:00 02/28/18 10:00 02/28/18 10:00 02/28/18 10:00 Exam: Gen: Alert, awake, Oriented to time,place and person Chest: Diminished breath sounds B/L, No wheezing, No crackles, Heart: S1S2+ RRR No murmurs Abd: Soft, nontender, nondistended,, BS +, No organomegaly Ext: tenderness in Left shoulder with mild swelling- better. No erythema. Limited ROM in left shoulder No edema, pulses are palpable, No calf tenderness Neuro : No focal neurological deficit. Skin: No rash. - Assessment and Plan (1) C. difficile diarrhea Current Visit: Yes Status: Acute Assessment and Plan: Patient has acute C. difficile infection. Complained of having had diarrhea for about 45 days and went to her PCP where she was treated with cipro and flagyl with no resolution Was started on 250mg po QID po vancomycin by Gi and cholestyramine. Reports significant improvement in diarrhea. ID recs appreciated. Plan for discharge on 14 day course of po vancomycin if patient continues to improve. Fecal transplant will be considered if diarrhea persists. (2) Left arm pain Current Visit: Yes Status: Acute Assessment and Plan: Pain is better controlled. Reviewed MRI of Left shoulder - High grade partial thickness tear of the distal anterior fiber of the supraspinatus tendon Status post Left shoulder arthroscopy subacromial decompression rotator cuff repair- plan to discharge home as per PT recommendation. Start Percocet 10/25 every 6 hours along with ibuprofen 600 mg every 8 hours when necessary. Onboard Ortho- okay to discharge from [facility] (3) Supratherapeutic INR Current Visit: Yes Status: Acute Assessment and Plan: On admission INR is supratherapeutic . 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 CT angiogram does not show any new aneurysms in this location. - Time Spent with Patient Total time spent is greater than 50% in coordination of care (as documented) at patient's floor/unit and/or counseling patient: Internal Medicine: Result - Labs CBC & Chem 7: 02/25/18 03:21 02/25/18 03:21 - ABG Interpretation ABG results: PT/INR, D-dimer PT 34.4 Seconds (9.4-12.1) H 02/28/18 06:48 Consult Discharge Plan - Plan Instructions: Rotator Cuff Tear Repair (DC) Referrals: Yaa Pantoja, IT TEACHER [Primary Care Provider] - Odilia Olivas, PAC [Physician Probation Supervisor] - 03/01/18 2:15 pm
--- NOTE | 2018-02-28 14:29 | Infectious Disease Progress No ---
Date of Encounter: 02/28/18 Time of Encounter: 14:26 - Assessment and Plan (1) Abdominal pain Current Visit: No Status: Acute Qualifiers: Abdominal location: epigastric Qualified Code(s): R10.13 - Epigastric pain (2) C. difficile diarrhea Current Visit: Yes Status: Acute Symptoms started about 60 days ago Patient was on IV antibiotics in April and had a Z-Dominguez back in November C. difficile was positive 02/15/2018 as outpatient; was treated with Flagyl 500 mg by mouth 3 times a day. Symptoms persisted, switched to oral vancomycin her on admission Clinically improved No signs of toxic megacolon, fulminant C. difficile or severe C. difficile colitis Appreciate GI recommendations Continue vancomycin orally 125 mg by mouth 3 times a day to finish a 14 day course (started on 02/19 Give probiotics Advance diet if okay with GI Monitor labs and for dehydration If patient's symptoms do not improve, I discussed with the patient the option of being transferred for fecal transplant. The other thing I am considering his repeating C. difficile PCR and EIA. If the EIA is negative, there is a concern that the diarrhea could be secondary to other etiologies (3) Left arm pain Current Visit: Yes Status: Acute (4) Supratherapeutic INR Current Visit: Yes Status: Acute (5) History of DVT (deep vein thrombosis) Current Visit: Yes Status: Acute (6) Thoracic outlet syndrome Current Visit: Yes Status: Acute - Subjective Interval history: Patient seen and examined. The case comfortable lying in bed. Denies any headache. No chest pain or shortness of breath. No urinary symptoms. Continues to have diarrhea. She is actually documenting of the time she has a bowel movement and she has had 3 so far today by 2 PM. Patient tells me she had 7 yesterday and is documented. Stool is not more formed. Yesterday, she was feeling better but continues to wish to return to the worse. Her diet has been advanced. In the last 24 hours: Vital signs afebrile no tachycardia Labs reviewed (no labs 02/25/2018) Infect Dis PN-Objective Data - Labs CBC & Chem 7: 02/25/18 03:21 02/25/18 03:21 Labs: Laboratory Results - last 24 hr 02/28/18 06:48 PT 34.4 H INR 3.0 Exam - Constitutional Vitals: Temp Pulse Resp BP Pulse Ox 98.1 F 93 16 139/76 95 02/28/18 10:00 02/28/18 10:00 02/28/18 10:00 02/28/18 10:00 02/28/18 10:00 General appearance: cooperative, no acute distress, no febrile - Head Head exam: Present: atraumatic, normocephalic - Eye Eye exam: Present: EOMI, PERRL - Respiratory Respiratory exam: Present: CTAB. Absent: wheezes - Cardiovascular Cardiovascular exam: Present: RRR, +S1, +S2 - GI/Abdominal GI/Abdominal exam: Present: normal bowel sounds, soft. Absent: distended, firm, guarding Additional comments: mild tenderness to deep palpation in bilateral lower quadrants - Extremities Exam Extremities exam: Present: normal capillary refill. Absent: joint swelling Additional comments: LUE in sling - Neurological Exam Neurological exam: Present: alert, oriented X3 Consult Discharge Plan - Plan Instructions: Rotator Cuff Tear Repair (DC) Referrals: Yaa Pantoja, BARKING MACHINE FEEDER [Primary Care Provider] - Odilia Olivas, PAC [Physician Wedding Makeup Artist] - 03/01/18 2:15 pm
[2018-02-28] MEDS: Ondansetron ODT 4 MG TAB.RAPDIS SL PRN (14:53)
[2018-03-01 06:18] LABS: Basophils % 0.6 %; Eosinophils # 0.5 K/mcL (0.0-0.6); Eosinophils % 6.6 %; Hematocrit 35.9 % (35.3-44.9); Hemoglobin 11.3 g/dL (11.5-15.4); Immature Granulocytes % 0.1 % (0-4); Mean Corpuscular HGB Conc 31.5 g/dL (31.6-35.5); Mean Corpuscular Hemoglobin 27.3 pg (28.0-33.3); Mean Corpuscular Volume 86.7 fL (83.0-100.0); Mean Platelet Volume 8.9 fL (9.4-12.4); Monocytes % 13.4 %; Neutrophils # 3.7 K/mcL (1.6-8.9); Platelet Count 383 K/mcL (140-400); Red Blood Count 4.14 M/mcL (3.82-4.97); Red Cell Distribution Width 12.7 % (11.5-14.5); Segmented Neutrophils % 51.3 %
[2018-03-01 06:26] LABS: INR 1.6; Prothrombin Time 18.4 Seconds (9.4-12.1)
[2018-03-01 06:37] LABS: BUN/Creatinine Ratio 13 (6-26); Blood Urea Nitrogen 8 mg/dL (8-23); Calcium 9.4 mg/dL (8.6-10.3); Carbon Dioxide 29 mEq/L (23-29); Chloride 106 mEq/L (98-107); Glucose 94 mg/dL (70-105); Osmolality,Calculated 286 (280-300); Potassium 4.4 mEq/L (3.5-5.1); Sodium 139 mEq/L (136-145); eGFR For Non-African Americans > 60 (> 60)
[2018-03-01] MEDS: Cholestyramine 4 GM POWD.PACK PO SCH (06:39)
[2018-03-01] MEDS: Aspirin 81 MG TAB.CHEW PO SCH (08:36)
[2018-03-01] MEDS: Cholecalciferol (D-3) 1,000 UNIT TABLET PO SCH (08:37)
[2018-03-01] MEDS: Lactobacillus 1 EACH CAP.SPRINK PO SCH ×2 (08:37→21:10)
[2018-03-01] MEDS: Vancomycin Oral Soln 125 MG/2.5 ML UDC PO SCH ×4 (08:38→21:11)
[2018-03-01] MEDS: Ondansetron ODT 4 MG TAB.RAPDIS SL PRN ×2 (10:37→18:57)
--- NOTE | 2018-03-01 12:10 | Orthopedics Progress Note ---
Date of Encounter: 03/01/18 Time of Encounter: 12:10 - Assessment and Plan (1) Left shoulder pain Current Visit: Yes Status: Acute Qualifiers: Chronicity: acute Qualified Code(s): M25.512 - Pain in left shoulder (2) Left arm pain Current Visit: Yes Status: Resolved (3) Unspecified rotator cuff tear or rupture of left shoulder, not specified as traumatic Current Visit: Yes Status: Acute Qualifiers: Rotator cuff tear extent: incomplete Qualified Code(s): M75.112 - Incomplete rotator cuff tear or rupture of left shoulder, not specified as traumatic (4) Status post left rotator cuff repair Current Visit: Yes Status: Acute Subjective Principal diagnosis: status post left shoulder rotator cuff repair Interval history: POD#7 - Date of procedure: 02/22/18 Pre-op diagnosis: Left rotator cuff tear labral tear Post-op diagnosis: same Procedure: Left shoulder arthroscopy subacromial decompression rotator cuff repair, Patient is doing well. Patient resting on couch at bedside. Slingshot brace as directed. Minimal swelling. Elbow/wrist ROM intact. Statistical Geneticist strength intact. Neurovascularly intact. Incisions were clean, dry and intact and new dressing were applied. Sutures were removed without difficulty, new Steri-strips placed. Remove bandages in 5-7 days. Then, Cleanse with soap and water daily. I outlined post-operative restrictions and discussed the operative report and arthroscopic photos with the patient. Continue to ICE and elevate. Pain/Swelling control discussed. Pain medication as needed - encouraged anti- inflammatories as needed. The patient's brace was properly adjusted and fitted. Continue in brace until follow up appt. Begin Elbow ROM, traffic court referee strengthening exercises as discussed. Therapy prescription provided for patient to start after appt with Dr. Perez. Follow up at [facility]#6 with . Objective Vital signs: Vital Signs Temp Pulse Resp BP Pulse Ox 03/01/18 09:54 98.5 F 79 16 136/74 96 03/01/18 06:35 98.4 F 83 16 144/68 95 03/01/18 00:02 98.1 F 86 147/71 94 02/28/18 19:14 97.5 F L 83 17 141/61 96 02/28/18 14:05 98.3 F 87 16 144/83 96 Intake and Output 02/28/18 03/01/18 03/01/18 23:59 07:59 15:59 Intake Total 480 / 480 Balance 480 / 480 Intake: Oral 480 / 480 Other: Meal Breakfast Percent of Meal Consumed 95% Stool Size Small Stool Consistency loose soft formed Stool Characteristics Hershey Stool Color Brown Green Black # Bowel Movements 1 - Labs CBC & BMP: 03/01/18 06:02 03/01/18 06:02 Labs: Abnormal lab results Hgb 11.3 g/dL (11.5-15.4) L 03/01/18 06:02 MCH 27.3 pg (28.0-33.3) L 03/01/18 06:02 MCHC 31.5 g/dL (31.6-35.5) L 03/01/18 06:02 MPV 8.9 fL (9.4-12.4) L 03/01/18 06:02 PT 18.4 Seconds (9.4-12.1) H 03/01/18 06:02 APTT 45.0 Seconds (26.0-36.0) H 02/20/18 04:25 Serum Total Protein 5.5 g/dL (6.4-8.9) L 02/20/18 04:25 Albumin 3.4 g/dL (3.5-5.7) L 02/20/18 04:25 Globulin 2.1 g/dL (2.4-3.5) L 02/20/18 04:25 Consult Discharge Plan - Plan Instructions: Rotator Cuff Tear Repair (DC) Referrals: Yaa Pantoja, SINGLE CORNER CUTTER [Primary Care Provider] - Odilia Olivas, PAC [Physician Social Work Administrator] - 03/01/18 2:15 pm
--- NOTE | 2018-03-01 15:59 | Internal Med Progress Note ---
Hospitalist Progress Note - Encounter Date of Encounter: 03/01/18 Time of Encounter: 16:00 - Exam Vitals: Temp Pulse Resp BP Pulse Ox 98.5 F 79 16 136/74 96 03/01/18 09:54 03/01/18 09:54 03/01/18 09:54 03/01/18 09:54 03/01/18 09:54 Exam: Gen: Alert, awake, Oriented to time,place and person Chest: Diminished breath sounds B/L, No wheezing, No crackles, Heart: S1S2+ RRR No murmurs Abd: Soft, nontender, nondistended,, BS +, No organomegaly Ext: tenderness in Left shoulder with mild swelling- better. No erythema. Limited ROM in left shoulder No edema, pulses are palpable, No calf tenderness Neuro : No focal neurological deficit. Skin: No rash. - Assessment and Plan (1) C. difficile diarrhea Current Visit: Yes Status: Acute Assessment and Plan: Patient has acute C. difficile infection. Complained of having had diarrhea for about 45 days and went to her PCP where she was treated with cipro and flagyl with no resolution Was started on 250mg po QID po vancomycin by Gi and cholestyramine. Reports significant improvement in diarrhea. ID recs appreciated. Plan for discharge on 14 day course of po vancomycin if patient continues to improve. Fecal transplant will be considered if diarrhea persists. Paient continues to have multiple episodes of loose stools. Will continue to monitor (2) Left arm pain Current Visit: Yes Status: Acute Assessment and Plan: Pain is better controlled. Reviewed MRI of Left shoulder - High grade partial thickness tear of the distal anterior fiber of the supraspinatus tendon Status post Left shoulder arthroscopy subacromial decompression rotator cuff repair- plan to discharge home as per PT recommendation. Start Percocet 10/25 every 6 hours along with ibuprofen 600 mg every 8 hours when necessary. [facility] (3) Supratherapeutic INR Current Visit: Yes Status: Acute Assessment and Plan: On admission INR is supratherapeutic . 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 CT angiogram does not show an y new aneurysms in this location. DVT Prophylaxis: on warfarin - Time Spent with Patient Total time spent is greater than 50% in coordination of care (as documented) at patient's floor/unit and/or counseling patient: Internal Medicine: Result - Labs CBC & Chem 7: 03/01/18 06:02 03/01/18 06:02 Labs: Short CBC 03/01/18 Range/Units 06:02 WBC 7.2 (4.3-11.1) K/mcL Hgb 11.3 L (11.5-15.4) g/dL Hct 35.9 (35.3-44.9) % Plt Count 383 (140-400) K/mcL Neutrophils # 3.7 (1.6-8.9) K/mcL BMP 03/01/18 06:02 Sodium 139 Potassium 4.4 Chloride 106 Carbon Dioxide 29 BUN 8 Creatinine 0.60 Glucose 94 Calcium 9.4 - ABG Interpretation ABG results: PT/INR, D-dimer PT 18.4 Seconds (9.4-12.1) H 03/01/18 06:02 Consult Discharge Plan - Plan Instructions: Rotator Cuff Tear Repair (DC) Referrals: Yaa Pantoja, REFRIGERATION SERVICE INSPECTOR [Primary Care Provider] - Odilia Olivas, PAC [Physician Sleeping Car Conductor] - 03/01/18 2:15 pm
--- NOTE | 2018-03-01 16:23 | Infectious Disease Progress No ---
Date of Encounter: 03/01/18 Time of Encounter: 16:21 - Assessment and Plan (1) Abdominal pain Current Visit: No Status: Acute Qualifiers: Abdominal location: epigastric Qualified Code(s): R10.13 - Epigastric pain (2) C. difficile diarrhea Current Visit: Yes Status: Acute Symptoms started about 60 days ago Patient was on IV antibiotics in April and had a Z-Dominguez back in November C. difficile was positive 02/15/2018 as outpatient; was treated with Flagyl 500 mg by mouth 3 times a day. Symptoms persisted, switched to oral vancomycin her on admission Clinically improved No signs of toxic megacolon, fulminant C. difficile or severe C. difficile colitis Appreciate GI recommendations Continue vancomycin orally 125 mg by mouth 3 times a day to finish a 14 day course (started on 02/19 Give probiotics Clinically seems to be improving so no further testing at this point. Await GI recommendation. If should her stool is not more formed the next day or 2 I will repeat C. difficile PCR and talked to GI for possible fecal transplant and transferred. (3) Left arm pain Current Visit: Yes Status: Acute (4) Supratherapeutic INR Current Visit: Yes Status: Acute (5) History of DVT (deep vein thrombosis) Current Visit: Yes Status: Acute (6) Thoracic outlet syndrome Current Visit: Yes Status: Acute - Subjective Interval history: Patient seen and examined. The case comfortable lying in bed. Denies any h eadache. No chest pain or shortness of breath. No urinary symptoms. Continues to have diarrhea. She is actually documenting of the time she has a bowel movement and she has had 3 so far today by 2 PM. She states that it is much better than yesterday. Her accounting for the today started at midnight. In the last 24 hours: Vital signs afebrile no tachycardia Labs reviewed WBC 7.2, CR 0.6 Infect Dis PN-Objective Data - Labs CBC & Chem 7: 03/01/18 06:02 03/01/18 06:02 Labs: Laboratory Results - last 24 hr 03/01/18 03/01/18 03/01/18 06:02 06:02 06:02 WBC 7.2 RBC 4.14 Hgb 11.3 L Hct 35.9 MCV 86.7 MCH 27.3 L MCHC 31.5 L RDW 12.7 Plt Count 383 MPV 8.9 L Immature Gran % 0.1 Seg Neutrophils % 51.3 Lymphocytes % 28.0 Monocytes % 13.4 Eosinophils % 6.6 Basophils % 0.6 Neutrophils # 3.7 Lymphocytes # 2.0 Monocytes # 1.0 Eosinophils # 0.5 Basophils # 0.0 PT 18.4 H INR 1.6 Sodium 139 Potassium 4.4 Chloride 106 Carbon Dioxide 29 BUN 8 Creatinine 0.60 Est GFR ( Amer) > 60 Est GFR (Non-Af Amer) > 60 BUN/Creatinine Ratio 13 Glucose 94 Calculated Osmolality 286 Calcium 9.4 Exam - Constitutional Vitals: Temp Pulse Resp BP Pulse Ox 98.5 F 79 16 136/74 96 03/01/18 09:54 03/01/18 09:54 03/01/18 09:54 03/01/18 09:54 03/01/18 09:54 General appearance: cooperative, no febrile - Head Head exam: Present: atraumatic, normocephalic - Respiratory Respiratory exam: Present: CTAB. Absent: wheezes - Cardiovascular Cardiovascular exam: Present: RRR, +S1, +S2 - GI/Abdominal GI/Abdominal exam: Present: normal bowel sounds, soft. Absent: tenderness Consult Discharge Plan - Plan Instructions: Rotator Cuff Tear Repair (DC) Referrals: Yaa Pantoja, TECHNICAL WRITING LEAD/MGR [Primary Care Provider] - Odilia Olivas, PAC [Physician Service Desk Specialist] - 03/01/18 2:15 pm
[2018-03-01] MEDS: Acetaminophen 325 MG TABLET PO PRN ×2 (17:28→19:02)
[2018-03-01] MEDS ORDERED: *HR* Warfarin 3 MG TABLET PO ONE (18:00)
[2018-03-01] MEDS: *HR* OxyCODONE/APAP 10/325 TABLET PO PRN (21:10)
[2018-03-02 05:42] LABS: INR 1.3; Prothrombin Time 14.5 Seconds (9.4-12.1)
[2018-03-02 07:44] VITALS: BP 125/76
[2018-03-02] MEDS: Cholecalciferol (D-3) 1,000 UNIT TABLET PO SCH (09:26)
[2018-03-02] MEDS: Lactobacillus 1 EACH CAP.SPRINK PO SCH (09:26)
[2018-03-02] MEDS: Vancomycin Oral Soln 125 MG/2.5 ML UDC PO SCH ×2 (09:26→13:02)
[2018-03-02] MEDS: Aspirin 81 MG TAB.CHEW PO SCH (09:26)
--- NOTE | 2018-03-02 11:35 | Discharge Summary ---
Date of Encounter: 03/02/18 Time of Encounter: 11:00 - Discharge Diagnosis (1) C. difficile diarrhea Priority: Primary Status: Acute Assessment and Plan: 67 year old female who presents with Left arm pain. 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 Diff infection diagnosed 02/15. Pt reports that at the time of her cervical rib removal at the [facility] back in April, the pt was told she would need to have a similar procedure on her left side. At the time she declined due to being asymptomatic. Pt states that the pain in her left arm began last evening around 7pm. The pain started as the pt reached into her coat pocket to get her phone. The pain is located in the upper shoulder and left clavicular region that radiates down her arm but not her neck or back. She had an MRI done that showed a high grade partial thickness tear of the distal anterior fiber of the supraspinatus tendon. She underwent a Left shoulder arthroscopy subacromial decompression rotator cuff repair by ortho and tolerated procedure with no acute complications. She was also noted to have diarrhea with acute C. difficile infection. Complained of having had diarrhea for about 45 days and went to her PCP where she was treated with cipro and flagyl with no resolution. She was started on 250mg po QID po vancomycin by GI and reports significant improvement in diarrhea. She was discharged on a 14 day course of po vancomycin in a stable condition. 35minutes was spent discharging this patient (2) Left arm pain Priority: Primary Status: Resolved Assessment and Plan: Pain is better controlled. Reviewed MRI of Left shoulder - High grade partial thickness tear of the distal anterior fiber of the supraspinatus tendon Status post Left shoulder arthroscopy subacromial decompression rotator cuff repair- plan to discharge home as per PT recommendation. Start Percocet 10/25 every 6 hours along with ibuprofen 600 mg every 8 hours when necessary. Onboard Ortho- [facility] (3) Supratherapeutic INR Priority: Primary Status: Acute (4) Chest pain Priority: Primary Status: Acute Qualifiers: Qualified Code(s): R07.9 - Chest pain, unspecified (5) History of DVT (deep vein thrombosis) Priority: Primary Status: Acute (6) Thoracic outlet syndrome Priority: Primary Status: Acute Hospital course: Ms. Fine is a 67 year old female - Time Spent with Patient Total time spent providing and/or coordinating discharge services: - Discharge Medications Prescriptions: OxyCODONE/APAP 10/325 [Percocet 10/325 MG] 1 each PO Q6HR PRN 5 Days #15 tablet PRN Reason: Pain Temazepam [Restoril] 15 mg PO HS PRN 7 Days #10 capsule PRN Reason: Insomnia Vancomycin Oral Soln [Firvanq] 250 mg PO QID 10 Days #40 udc Home Medications: Aspirin 81 mg PO DAILY #90 tab.chew 12/28/15 [Rx] Cholecalciferol (D-3) [Vitamin D] 5,000 unit PO DAILY 10/26/16 [History] Multivitamin [One Daily Essential] 1 tab PO DAILY 10/26/16 [History] Acetaminophen [Tylenol Arthritis] 2 tab PO BID PRN 02/24/17 [History] Warfarin [Coumadin] 4 mg PO WEBSTER 05/05/17 [History] Lactobacillus Acidophilus [Acidophilus Probiotic] 1 tab PO BID #60 tablet 02/15/18 [Rx] Atorvastatin Calcium [Lipitor] 20 mg PO DAILY 02/20/18 [History] Warfarin Sodium 3 mg PO MOTUWETHFRSA 02/20/18 [History] OxyCODONE/APAP 10/325 [Percocet 10/325 MG] 1 each PO Q6HR PRN 5 Days #15 tablet 03/02/18 [Rx] Temazepam [Restoril] 15 mg PO HS PRN 7 Days #10 capsule 03/02/18 [Rx] Vancomycin Oral Soln [Firvanq] 250 mg PO QID 10 Days #40 udc 03/02/18 [Rx] Allergies/Adverse Reactions: Allergy/AdvReac Type Severity Reaction Status Date / Time codeine Allergy See Verified 02/15/18 11:32 Comments promethazine [From Phenergan] Allergy See Verified 02/15/18 11:32 Comments Date of admission: 02/21/18 14:52 Primary care physician: Yaa Pantoja CNP Consults: 02/20/18 12:59 Consult to Orthopedic Surgery [CONS] Routine Consulting Provider: [facility] Reason for Consult: Left shoulder pain and tenderness Time Notified: 13:04 Call Completed: Yes 02/22/18 17:55 Consult to Occupational Therapy [CONS] Routine Comment: post shoulder surgery Reason for Consult: post shoulder surgery Does patient have active BEDREST order?: No Is patient medically & hemodynamically stable?: Yes RT Post Op Consult [CONS] Routine 02/24/18 18:23 Consult to Gastroenterology [CONS] Routine Consulting Provider: [facility] Reason for Consult: Persistent C. difficile diarrhea Call Completed: Yes 02/27/18 12:35 Consult to Infectious Diseases [CONS] Routine Consulting Provider: [facility] [place] Reason for Consult: Resistant C. Diff Call Completed: No - Constitutional Vitals: Temp Pulse Resp BP Pulse Ox 98.3 F 81 16 125/76 92 03/02/18 07:42 03/02/18 07:42 03/02/18 07:42 03/02/18 07:42 03/02/18 09:24 Exam: Gen: Alert, awake, Oriented to time,place and person Chest: Diminished breath sounds B/L, No wheezing, No crackles, Heart: S1S2+ RRR No murmurs Abd: Soft, nontender, nondistended,, BS +, No organomegaly Ext: tenderness in Left shoulder with mild swelling- better. No erythema. Limited ROM in left shoulder No edema, pulses are palpable, No calf tenderness Neuro : No focal neurological deficit. Skin: No rash. - Patient Status Disposition: Home, Self-Care Condition: Good - Discharge Instructions Instructions: Rotator Cuff Tear Repair (DC), Clostridium Difficile Infection (DC) Follow Up With: Yaa Pantoja, DISCHARGE DOOR OPERATOR [Primary Care Provider] - Odilia Olivas PAC [Physician Contract Assistant] - 03/01/18 2:15 pm Forms: ED Satisfaction Letter
[2018-03-02] MEDS: Ibuprofen 600 MG TABLET PO PRN (13:09)
[2018-03-02] MEDS ORDERED: *HR* Warfarin 4 MG TABLET PO ONE (13:49)
--- NOTE | 2018-03-02 21:45 | Infectious Disease Progress No ---
Date of Encounter: 03/02/18 Time of Encounter: 12:20 - Assessment and Plan (1) Abdominal pain Status: Acute Qualifiers: Abdominal location: epigastric Qualified Code(s): R10.13 - Epigastric pain (2) C. difficile diarrhea Status: Acute Symptoms started about 60 days ago Patient was on IV antibiotics in April and had a Z-Dominguez back in November C. difficile was positive 02/15/2018 as outpatient; was treated with Flagyl 500 mg by mouth 3 times a day. Symptoms persisted, switched to oral vancomycin her on admission Clinically improved No signs of toxic megacolon, fulminant C. difficile or severe C. difficile colitis Appreciate GI recommendations Continue vancomycin orally 125 mg by mouth 3 times a day to finish a 14 day course (started on 02/19 Give probiotics patient schedulred to be discharged. she states she feels great instructed to continue oral vancomycin take probiotics stay well hydrated with water and G2 gatorade; no caffiene eat foots that slow down motility (peanut butter, banana, rice, potatoes etc) all questions answered and concerns addressed in presence of no need for follow up but if diarrhea gets worse, instructed to call GI for colonoscopy and possible fecal transplant (3) Left arm pain Status: Resolved (4) Supratherapeutic INR Status: Acute (5) History of DVT (deep vein thrombosis) Status: Acute (6) Thoracic outlet syndrome Status: Acute - Subjective Interval history: Patient seen and examined. The case comfortable lying in bed. Denies any headache. No chest pain or shortness of breath. No urinary symptoms. Continu es to have diarrhea. but it's much improved. had 3 BM today in the last 24 hours and they are more formed. In the last 24 hours: Vital signs afebrile no tachycardia Labs reviewed Infect Dis PN-Objective Data - Labs CBC & Chem 7: 03/01/18 06:02 03/01/18 06:02 Labs: Laboratory Results - last 24 hr 03/02/18 03/02/18 05:19 10:55 PT 14.5 H INR 1.3 Troponin I < 0.03 Exam - Constitutional Vitals: Temp Pulse Resp BP Pulse Ox 98.3 F 81 16 125/76 92 03/02/18 07:42 03/02/18 07:42 03/02/18 07:42 03/02/18 07:42 03/02/18 09:24 General appearance: no acute distress, no febrile - Additional findings Additional findings: HEENT: MARY EOMI, MMM, no oral thrush Neck: supple, no masses lungs: CTAB, no Wheezing CV: S1S2 RRR Abdomen: soft, NT, normal bowel sounds Ext: no edema, adequate perfusion Neuro: A&Ox3, no focal deficit. Consult Discharge Plan - Plan Instructions: Rotator Cuff Tear Repair (DC), Clostridium Difficile Infection (DC) Referrals: Yaa Pantoja, DOCUMENT PROCESSING SPECIALIST [Primary Care Provider] - Odilia Olivas, PAC [Physician Appliance Tester] - 03/01/18 2:15 pm Prescriptions: OxyCODONE/APAP 10/325 [Percocet 10/325 MG] 1 each PO Q6HR PRN 5 Days #15 tablet PRN Reason: Pain Temazepam [Restoril] 15 mg PO HS PRN 7 Days #10 capsule PRN Reason: Insomnia Vancomycin Oral Soln [Firvanq] 250 mg PO QID 10 Days #40 udc
--- NOTE | 2018-03-03 17:11 | Electrocardiograph Report ---
[address] [address] Test Date: 2018-03-02 Pat Name: Jillian Fine Department: [id number] Room: [facility] Gender: F Reservation Agent: : [id number] Requested By: Su Gilbert Order Number: [id number] Reading MD: Ga Medrano Measurements Intervals [place] Rate: 90 P: 57 [place]: 174 QRS: 3 QRSD: 86 T: 31 QT: 343 QTc: 390 Interpretive Statements SINUS RHYTHM Electronically Signed On 03-03-2018 17:09:57 EST by Ga Medrano
== END 2018-03-02 16:13 | disposition home or self-care (01) | DRG 511 ==
LOC: 3BNU 03:00 → EMEROOARM 03:00 → 3BNU 11:45 → 3NENU 02-21 17:30
PROVIDERS: ADMIT Internal Medicine; ATTEND Internal Medicine